=== PATIENT | female | born 1985 | race Caucasian/White ===

== ENCOUNTER 2016-10-02 12:07 | Emergency (ER) | payer BC ==
[2016-10-02 12:17] VITALS: BP 117/71
--- NOTE | 2016-10-02 14:06 | UC ---
Abdominal Pain Female HPI - HPI Summary HPI Summary: complaint of LLQ pain that started 3 days ago felt nauseated on the first day now is a constant aching pain waves of pain that are intermittent but has a constant pain denies vomiting, denies diarrhea, dysuria hx of ovarian cysts in the past but the pain feels different denies fever and chills LMP - mirena no menses for over 1 year, denies vaginal discharge last BM 3 days ago normal pattern no blood in stool taking ibuprofen every 6 hours without any relief - History of Current Complaint Chief Complaint: UCAbdominalPain Stated Complaint: LEFT SIDE PAIN Time Seen by Provider: 10/02/16 13:58 Hx Obtained From: Patient Hx Last Menstrual Period: MIRENA Onset/Duration: Sudden Onset, Lasting Days Location: Discrete At: LLQ Character: Sharp Aggravating Factor(s): Nothing Alleviating Factor(s): Nothing Associated Signs and Symptoms: Positive: Nausea Allergies/Adverse Reactions: Allergies Allergy/AdvReac Type Severity Reaction Status Date / Time Amoxicillin [From Augmentin] Allergy Severe SOB, RASH Verified 10/19/15 17:31 Clavulanic Acid Allergy Severe SOB, RASH Verified 10/19/15 17:31 [From Augmentin] Sulfa Drugs Allergy Severe SOB, RASH Verified 10/19/15 17:31 Nitrofurantoin Allergy Hives Verified 10/19/15 17:31 [From Macrobid] PMH/Surg Hx/FS Hx/Imm Hx Previously Healthy: Yes Endocrine History Of: Reports: Thyroid Disease - Thyroiditis Denies: Diabetes Cardiovascular History Of: Denies: Hypertension, Pacemaker/ICD GI/ History Of: Reports: Gastroesophageal Reflux - GALLBLADDER OUT IN AUG 2011 , Ulcer - HX OF BUT NOT AT PRESENT, Gall Bladder Disease - OUT IN AUG 2011 Denies: Renal Disease Neurological History Of: Reports: Migraine - MONTHLY- TREATS WITH IBUPROFEN AND SLEEP Psychological History Of: Reports: Anxiety - ON PAXIL FOR - Surgical History Surgical History: Yes Surgery Procedure, Year, and Place: [place] 08[place] [place] ST[place] PLACEMENT - URETERS[place] [place]. Appendectomy. TUBAL LIGATION - Family History Known Family History: Positive: Other - cancer Negative: Cardiac Disease, Hypertension, Diabetes - Social History Occupation: Employed Full-time Lives: With Family Alcohol Use: Occasionally Substance Use Type: None Smoking Status (MU): Light Every Day Tobacco Smoker Type: Cigarettes Amount Used/How Often: socially - Immunization History Most Recent Influenza Vaccination: never Most Recent Tetanus Shot: up to date Review of Systems Constitutional: Negative Skin: Negative Eyes: Negative ENT: Negative Respiratory: Negative Cardiovascular: Negative Gastrointestinal: Abdominal Pain Genitourinary: Negative Motor: Negative Neurovascular: Negative Musculoskeletal: Negative Neurological: Negative Psychological: Negative All Other Systems Reviewed And Are Negative: Yes Physical Exam Triage Information Reviewed: Yes Appearance: Well-Nourished, Pain Distress, Obese Vital Signs: Initial Vital Signs Temp 98.2 F 10/02/16 12:14 Pulse 70 10/02/16 12:14 Resp 16 10/02/16 12:14 BP 117/71 10/02/16 12:14 Pulse Ox 99 10/02/16 12:14 Vital Signs Reviewed: Yes Eyes: Positive: Conjunctiva Clear ENT: Positive: Pharynx normal, TMs normal. Negative: Nasal congestion Neck: Positive: Supple Respiratory: Positive: Lungs clear, Normal breath sounds, No respiratory distress Cardiovascular: Positive: RRR, No Murmur Abdomen Description: Positive: No Organomegaly, Guarding, Other: - LLQ tenderness. Negative: CVA Tenderness (R), CVA Tenderness (L) Bowel Sounds: Positive: Present Musculoskeletal: Positive: No Edema Neurological Exam: Normal Psychological Exam: Normal Skin Exam: Normal - External genitalia without erythema, exudate or discharge. Vaginal vault is without discharge. Cervix is of normal color without lesion. The os is closed.mirena string visulaizes, There is no bleeding noted. Uterus is noted to be of normal size and nontender. No cervical motion tenderness is seen. No masses are palpated. The adnexa are without masses or tenderness. Abd Pain Female Course/Dx - Course Course Of Treatment: exam completed. LLQ tendeness on exam. will transfer to ED d/t tenderness on exam - Differential Dx/Diagnosis Differential Diagnosis: Constipation, Ovarian Cyst, Pelvic Inflammatory Disease , Urinary Tract Infection Provider Diagnoses: LLQ abdominal pain - Physician Notification/Consults Discussed Patient Care With: Dr Jeronimo Perez Time Discussed With Above Provider: 14:23 Discharge - Discharge Plan Condition: Stable Disposition: TRANS [facility] Referrals: Mary Beth Menjivar MD [Primary Care Provider] -
== END 2016-10-02 14:31 | disposition short-term general hospital (02) ==
LOC: UCEAST 12:07
DX: R10.32 Left lower quadrant pain (principal); Z32.02 Encounter for pregnancy test, result negative; Z90.49 Acquired absence of other specified parts of digestive tract; K21.9 Gastro-esophageal reflux disease without esophagitis; Z88.1 Allergy status to other antibiotic agents; Z88.2 Allergy status to sulfonamides; F17.210 Nicotine dependence, cigarettes, uncomplicated
CPT/HCPCS: 81002; 81025; 87086; 99212; G0463

== ENCOUNTER 2016-10-02 14:44 | Emergency (ER) | payer BC ==
[2016-10-02] MEDS ORDERED: Ketorolac INJ* 30 MG/ML 1 ML VIAL IV ONE (15:18)
[2016-10-02] MEDS ORDERED: NS 0.9% 1000 ML* 1,000 ML IV ONE (15:18)
[2016-10-02 15:43] LABS: Hematocrit 40 % (35-47); Hemoglobin 13.6 g/dl (12.0-16.0); Mean Corpuscular HGB Conc 34 g/dl (31-36); Mean Corpuscular Hemoglobin 30 pg (27-31); Mean Corpuscular Volume 87 fL (80-97); Mean Platelet Volume 9 um3 (7.4-10.4); Red Blood Count 4.59 10^6/ul (4.0-5.4); Red Cell Distribution Width 13 % (10.5-15); White Blood Count 10.5 10^3/ul (3.5-10.8)
[2016-10-02 15:50] LABS: Urine Bilirubin Negative (Negative); Urine Glucose Negative (Negative); Urine Nitrite Negative (Negative)
[2016-10-02 16:18] LABS: ALT 10 U/L (7-52); AST 12 U/L (13-39); Alkaline Phosphatase 46 U/L (34-104); Anion Gap 5 mmol/L (2-11); BUN/Creatinine Ratio 14.1 (8-20); Blood Urea Nitrogen 10 mg/dL (6-24); C Reactive Protein < 1.00 mg/L (< 5.00); CO2 Carbon Dioxide 28 mmol/L (22-32); Calcium 9.1 mg/dL (8.6-10.3); Chloride 105 mmol/L (101-111); EGFR African American 122.7 (>60); EGFR Non-African American 95.4 (>60); Glucose 132 mg/dL (70-100); Lipase 24 U/L (11.0-82.0); Potassium 3.5 mmol/L (3.5-5.0); Sodium 138 mmol/L (133-145)
[2016-10-02] MEDS ORDERED: Iohexol 300* (CONTRAST) 10 ML SDV IV ONE (16:28)
--- NOTE | 2016-10-02 17:10 | ED ---
Abdominal Pain/Female - HPI Summary HPI Summary: Patient arrives to ED with 3 day history of worsening LLQ pain. Denies known fever, but endorses sweats. PMHx includes 3 abdominal surgeries: tubal ligation , appendectomy and cholecystectomy. Last BM was 3 days ago which is normal for her. No color changes or abnormalities in the stool. Endorses mild nausea, but denies vomiting. Pain is sharp and achy and does not radiate. Pain is worse at night and not related to time of eating. Denies back pain or urinary symptoms. Pain is described as stabbing and aching and is usually intermittent. - History of Current Complaint Hx Obtained From: Patient Hx Last Menstrual Period: MIRENA ?: No Onset/Duration: Sudden Onset Timing: Constant Severity Initially: Moderate Severity Currently: Moderate Pain Intensity: 6 Pain Scale Used: 0-10 Numeric Location: Discrete At: LLQ Radiates: No Character: Sharp, Colicy Aggravating Factor(s): Nothing Alleviating Factor(s): Nothing Associated Signs and Symptoms: Positive: Nausea - Risk Factors Ectopic Risk Factor: Maternal Age ^ 30 Ovarian Torsion Risk Factor: Reproductive Age <Jennifer Roberts - Last Filed: 10/02/16 18:21> <Kevon Dejesus - Last Filed: 10/03/16 10:29> - History of Current Complaint Chief Complaint: EDAbdPain Stated Complaint: LT ABD PAIN Time Seen by Provider: 10/02/16 14:51 Allergies/Adverse Reactions: Allergies Allergy/AdvReac Type Severity Reaction Status Date / Time Amoxicillin [From Augmentin] Allergy Severe SOB, RASH Verified 10/19/15 17:31 Clavulanic Acid Allergy Severe SOB, RASH Verified 10/19/15 17:31 [From Augmentin] Sulfa Drugs Allergy Severe SOB, RASH Verified 10/19/15 17:31 Bee Venom Allergy Anaphylatic Verified 10/02/16 15:48 Shock Nitrofurantoin Allergy Hives Verified 10/19/15 17:31 [From Macrobid] PMH/Surg Hx/FS Hx/Imm Hx Previously Healthy: Yes Endocrine/Hematology History: Reports: Hx Thyroid Disease - Thyroiditis Denies: Hx Diabetes Cardiovascular History: Denies: Hx Hypertension, Hx Pacemaker/ICD GI History: Reports: Hx Gall Bladder Disease - OUT IN AUG 2011, Hx Gastroesophageal Reflux Disease - HX OF- NO PROBLEMS AT PRESENT, Hx Irritable Bowel, Hx Ulcer - HX OF BUT NOT AT PRESENT History: Reports: Hx Kidney Infection, Other Problems/Disorders - ENDOMETRIOSIS, ADENOMYOSIS Denies: Hx Renal Disease Musculoskeletal History: Reports: Hx Tendonitis - RIGHT HAND Sensory History: Reports: Hx Contacts or Glasses - INSTRUCTS GIVEN Denies: Hx Hearing Aid Opthamlomology History: Reports: Hx Contacts or Glasses - INSTRUCTS GIVEN Neurological History: Reports: Hx Migraine - MONTHLY- TREATS WITH IBUPROFEN AND SLEEP Psychiatric History: Reports: Hx Anxiety - ON PAXIL FOR Denies: Hx Panic Disorder - Surgical History Surgery Procedure, Year, and Place: [place] [place] [place] Appendectomy. TUBAL LIGATION Hx Anesthesia Reactions: No Infectious Disease History: No Infectious Disease History: Denies: History Other Infectious Disease, Traveled Outside the in Last 30 Days - Family History Known Family History: Positive: Other - cancer Negative: Cardiac Disease, Hypertension, Diabetes - Social History Occupation: Employed Full-time Lives: With Family Alcohol Use: Occasionally Hx Substance Use: No Substance Use Type: Reports: None Hx Tobacco Use: Yes Smoking Status (MU): Light Every Day Tobacco Smoker Type: Cigarettes Amount Used/How Often: socially <Jennifer Roberts - Last Filed: 10/02/16 18:21> Review of Systems Constitutional: Negative Eyes: Negative Cardiovascular: Negative Respiratory: Negative Positive: Abdominal Pain, Nausea Genitourinary: Negative Positive: no symptoms reported, see HPI Musculoskeletal: Negative Skin: Negative Psychological: Normal All Other Systems Reviewed And Are Negative: Yes <Jennifer Roberts - Last Filed: 10/02/16 18:21> Physical Exam Triage Information Reviewed: Yes Vital Signs On Initial Exam: Initial Vitals Temp Pulse Resp BP Pulse Ox 98.5 F 78 18 119/72 100 10/02/16 14:45 10/02/16 14:45 10/02/16 14:45 10/02/16 14:45 10/02/16 14:45 Vital Signs Reviewed: Yes Appearance: Positive: Well-Appearing, No Pain Distress, Well-Nourished Skin: Positive: Warm, Skin Color Reflects Adequate Perfusion Head/Face: Positive: Normal Head/Face Inspection Eyes: Positive: EOMI, MINAL Neck: Positive: Nontender, No Lymphadenopathy Respiratory/Lung Sounds: Positive: Clear to Auscultation, Breath Sounds Present Cardiovascular: Positive: Normal Abdomen Description: Positive: Soft, Other: - tenderness in LLQ on palpation. Rebound tenderness in LLQ when palpating RLQ. No CVA tenderness. Musculoskeletal: Positive: Normal, Strength/ROM Intact Neurological: Positive: Sensory/Motor Intact, Alert, Oriented to Person Place, Time, Speech Normal Psychiatric: Positive: Normal AVPU Assessment: Alert - [place]onna Coma Scale Coma Scale Total: 15 <Jennifer Roberts - Last Filed: 10/02/16 18:21> Vital Signs On Initial Exam: Initial Vitals Temp Pulse Resp BP Pulse Ox 98.5 F 78 18 119/72 100 10/02/16 14:45 10/02/16 14:45 10/02/16 14:45 10/02/16 14:45 10/02/16 14:45 <Kevon Dejesus - Last Filed: 10/03/16 10:29> Diagnostics - Vital Signs Vital Signs Temp Pulse Resp BP Pulse Ox 10/02/16 16:00 74 113/70 99 10/02/16 15:30 115/68 10/02/16 15:16 83 98 10/02/16 15:06 98.1 F 10/02/16 15:05 78 97 10/02/16 15:04 124/69 10/02/16 14:45 98.5 F 78 18 119/72 100 - Laboratory Lab Results: Lab Results 10/02/16 10/02/16 10/02/16 Range/Units 15:25 15:25 15:25 WBC 10.5 (3.5-10.8) 10^3/ul RBC 4.59 (4.0-5.4) 10^6/ul Hgb 13.6 (12.0-16.0) g/dl Hct 40 (35-47) % MCV 87 (80-97) fL MCH 30 (27-31) pg MCHC 34 (31-36) g/dl RDW 13 (10.5-15) % Plt Count 187 (150-450) 10^3/ul MPV 9 (7.4-10.4) um3 Neut % (Auto) 71.1 (38-83) % Lymph % (Auto) 21.3 L (25-47) % Morrill % (Auto) 5.2 (1-9) % Eos % (Auto) 1.9 (0-6) % Baso % (Auto) 0.5 (0-2) % Absolute Neuts (auto) 7.5 (1.5-7.7) 10^3/ul Absolute Lymphs (auto) 2.2 (1.0-4.8) 10^3/ul Absolute Monos (auto) 0.6 (0-0.8) 10^3/ul Absolute Eos (auto) 0.2 (0-0.6) 10^3/ul Absolute Basos (auto) 0.1 (0-0.2) 10^3/ul Absolute Nucleated RBC 0 10^3/ul Nucleated RBC % 0 Sodium 138 (133-145) mmol/L Potassium 3.5 (3.5-5.0) mmol/L Chloride 105 (101-111) mmol/L Carbon Dioxide 28 (22-32) mmol/L Anion Gap 5 (2-11) mmol/L BUN 10 (6-24) mg/dL Creatinine 0.71 (0.51-0.95) mg/dL Est GFR ( Amer) 122.7 (>60) Est GFR (Non-Af Amer) 95.4 (>60) BUN/Creatinine Ratio 14.1 (8-20) Glucose 132 H (70-100) mg/dL Calcium 9.1 (8.6-10.3) mg/dL Total Bilirubin 0.60 (0.2-1.0) mg/dL AST 12 L (13-39) U/L ALT 10 (7-52) U/L Alkaline Phosphatase 46 (34-104) U/L C-Reactive Protein < 1.00 (< 5.00) mg/L Total Protein 7.0 (6.4-8.9) g/dL Albumin 4.0 (3.2-5.2) g/dL Globulin 3.0 (2-4) g/dL Albumin/Globulin Ratio 1.3 (1-3) Lipase 24 (11.0-82.0) U/L Beta HCG, Quant < 0.60 mIU/mL Urine Color Colorless Urine Appearance Clear Urine pH 6.0 (5-9) Ur Specific [place] 1.002 L (1.010-1.030) Urine Protein Negative (Negative) Urine Ketones Negative (Negative) Urine Blood Negative (Negative) Urine Nitrate Negative (Negative) Urine Bilirubin Negative (Negative) Urine Urobilinogen Negative (Negative) Ur Leukocyte Esterase Negative (Negative) Urine Glucose Negative (Negative) Result Diagrams: 10/02/16 15:25 10/02/16 15:25 Lab Statement: Any lab studies that have been ordered have been reviewed, and results considered in the medical decision making process. - CT No standard instances CT Interpretation: No Acute Changes CT Interpretation Completed By: Radiologist - Lung bases: The lung bases are clear. Liver: The liver is normal in size. There are no masses. There is no ductal dilatation. Gallbladder: Cholecystectomy. Spleen: The spleen is normal in size. There are no masses. Pancreas: There is no focal pancreatic mass or ductal dilatation. Adrenal glands: There is no evidence of adrenal mass. Kidneys: The kidneys are normal in size and position. There are prompt nephrograms and there is prompt excretion bilaterally. There are no renal parenchymal masses. There is no evidence of nephrolithiasis. Adenopathy: There is no evidence of adenopathy by size criteria. Fluid collections: There are no free or localized fluid collections. Vessels:There are no significant atherosclerotic changes involving the aorta. There is no focal aneurysm. The iliac vessels are normal in caliber. The IVC appears normal. GI tract: There are no acute CT bowel findings. There is no obstruction. The stomach and small bowel appear normal. The lower GI tract is normal. The cecum, ileocecal valve, and terminal ileum appear normal. There is appendectomy.. Pelvic organs: The uterus and adnexa appear normal. There is an IUD Bladder: There are no bladder masses. Abdominal and pelvic soft tissues: The extraperitoneal abdominal and pelvic soft tissues appear normal.. Osseous structures: There are no acute osseous findings. Other: None IMPRESSION: NO ACUTE CT FINDINGS. NO MASS OR INFLAMMATORY CHANGE <Jennifer Roberts - Last Filed: 10/02/16 18:21> - Vital Signs Vital Signs Temp Pulse Resp BP Pulse Ox 10/02/16 18:31 98.7 F 71 18 124/81 10/02/16 18:07 71 97 10/02/16 18:05 124/81 10/02/16 17:07 76 100 10/02/16 17:00 74 99 10/02/16 16:00 74 113/70 99 10/02/16 15:30 115/68 10/02/16 15:16 83 98 10/02/16 15:06 98.1 F 10/02/16 15:05 78 97 10/02/16 15:04 124/69 10/02/16 14:45 98.5 F 78 18 119/72 100 - Laboratory Lab Results: Lab Results 10/02/16 10/02/16 10/02/16 Range/Units 15:25 15:25 15:25 WBC 10.5 (3.5-10.8) 10^3/ul RBC 4.59 (4.0-5.4) 10^6/ul Hgb 13.6 (12.0-16.0) g/dl Hct 40 (35-47) % MCV 87 (80-97) fL MCH 30 (27-31) pg MCHC 34 (31-36) g/dl RDW 13 (10.5-15) % Plt Count 187 (150-450) 10^3/ul MPV 9 (7.4-10.4) um3 Neut % (Auto) 71.1 (38-83) % Lymph % (Auto) 21.3 L (25-47) % Morrill % (Auto) 5.2 (1-9) % Eos % (Auto) 1.9 (0-6) % Baso % (Auto) 0.5 (0-2) % Absolute Neuts (auto) 7.5 (1.5-7.7) 10^3/ul Absolute Lymphs (auto) 2.2 (1.0-4.8) 10^3/ul Absolute Monos (auto) 0.6 (0-0.8) 10^3/ul Absolute Eos (auto) 0.2 (0-0.6) 10^3/ul Absolute Basos (auto) 0.1 (0-0.2) 10^3/ul Absolute Nucleated RBC 0 10^3/ul Nucleated RBC % 0 Sodium 138 (133-145) mmol/L Potassium 3.5 (3.5-5.0) mmol/L Chloride 105 (101-111) mmol/L Carbon Dioxide 28 (22-32) mmol/L Anion Gap 5 (2-11) mmol/L BUN 10 (6-24) mg/dL Creatinine 0.71 (0.51-0.95) mg/dL Est GFR ( Amer) 122.7 (>60) Est GFR (Non-Af Amer) 95.4 (>60) BUN/Creatinine Ratio 14.1 (8-20) Glucose 132 H (70-100) mg/dL Calcium 9.1 (8.6-10.3) mg/dL Total Bilirubin 0.60 (0.2-1.0) mg/dL AST 12 L (13-39) U/L ALT 10 (7-52) U/L Alkaline Phosphatase 46 (34-104) U/L C-Reactive Protein < 1.00 (< 5.00) mg/L Total Protein 7.0 (6.4-8.9) g/dL Albumin 4.0 (3.2-5.2) g/dL Globulin 3.0 (2-4) g/dL Albumin/Globulin Ratio 1.3 (1-3) Lipase 24 (11.0-82.0) U/L Beta HCG, Quant < 0.60 mIU/mL Urine Color Colorless Urine Appearance Clear Urine pH 6.0 (5-9) Ur Specific [place] 1.002 L (1.010-1.030) Urine Protein Negative (Negative) Urine Ketones Negative (Negative) Urine Blood Negative (Negative) Urine Nitrate Negative (Negative) Urine Bilirubin Negative (Negative) Urine Urobilinogen Negative (Negative) Ur Leukocyte Esterase Negative (Negative) Urine Glucose Negative (Negative) Result Diagrams: 10/02/16 15:25 10/02/16 15:25 Lab Statement: Any lab studies that have been ordered have been reviewed, and results considered in the medical decision making process. <Kevon Dejesus - Last Filed: 10/03/16 10:29> Abdominal Pain Fem Course/Dx - Course Course Of Treatment: CT abd/pelvis without acute findings. Patient has history of appendectomy, tubal ligation, and cholecystectomy. Patient has IUD which is in place on CT. Denies vaginal bleeding but notes to a long history of endometriosis and adenomyosis. Explained to patient this pain could be d/t endormetriosis, although nothing found on CT. Recommended follow up with OBGYN. Labs and UA WNL. Patient agrees to follow up. Patient afebrile. Patient notes she has tramadol at home for migraines and will use if pain continues. Provider agrees to prescribe zofran. - Diagnoses Differential Diagnosis: Positive: Bowel Obstruction, Constipation, Ovarian Cyst <Jennifer Roberts - Last Filed: 10/02/16 18:21> - Provider Notifications Discussed Care Of Patient With: I was available for consultation. This patient was seen by mid level provider. The patient was not presented, seen, or examined by me. WR. <Kevon Dejesus - Last Filed: 10/03/16 10:29> - Diagnoses Provider Diagnoses: Abdominal pain Discharge <Jennifer Roberts - Last Filed: 10/02/16 18:21> <Kevon Dejesus - Last Filed: 10/03/16 10:29> - Discharge Plan Condition: Stable Disposition: HOME Prescriptions: Ondansetron ODT TAB* [Zofran Odt TAB*] 4 mg PO Q6H PRN #10 tab.odt MDD 4 PRN Reason: Nausea Patient Education Materials: Endometritis (ED) Referrals: Mary Beth Menjivar MD [Primary Care Provider] - Additional Instructions: Follow up with OBGYN. Follow up with PCP. Call tomorrow for appts. As discussed, this pain could be caused by endometriosis and should be closely followed by OB. I will give you information on endometriosis, yet this is not your diagnoses, please follow up with OB. Zofran as needed for nausea Come back to ED if worsening symptoms develop. SEE CT Results Below: Lung bases: The lung bases are clear. Liver: The liver is normal in size. There are no masses. There is no ductal dilatation. Gallbladder: Cholecystectomy. Spleen: The spleen is normal in size. There are no masses. Pancreas: There is no focal pancreatic mass or ductal dilatation. Adrenal glands: There is no evidence of adrenal mass. Kidneys: The kidneys are normal in size and position. There are prompt nephrograms and there is prompt excretion bilaterally. There are no renal parenchymal masses. There is no evidence of nephrolithiasis. Adenopathy: There is no evidence of adenopathy by size criteria. Fluid collections: There are no free or localized fluid collections. Vessels:There are no significant atherosclerotic changes involving the aorta. There is no focal aneurysm. The iliac vessels are normal in caliber. The IVC appears normal. GI tract: There are no acute CT bowel findings. There is no obstruction. The stomach and small bowel appear normal. The lower GI tract is normal. The cecum, ileocecal valve, and terminal ileum appear normal. There is appendectomy.. Pelvic organs: The uterus and adnexa appear normal. There is an IUD Bladder: There are no bladder masses. Abdominal and pelvic soft tissues: The extraperitoneal abdominal and pelvic soft tissues appear normal.. Osseous structures: There are no acute osseous findings. Other: None
--- NOTE | 2016-10-02 17:57 | RAD ---
INDICATION: Left lower quadrant pain COMPARISON: CT October 19, 2015 TECHNIQUE: Axial source images were obtained from the hemidiaphragms to the symphysis pubis following administration of oral and intravenous contrast. 115 mL Omnipaque 300 was utilized. Coronal and sagittal reconstructed images were acquired. Lung bases: The lung bases are clear. Liver: The liver is normal in size. There are no masses. There is no ductal dilatation. Gallbladder: Cholecystectomy. Spleen: The spleen is normal in size. There are no masses. Pancreas: There is no focal pancreatic mass or ductal dilatation. Adrenal glands: There is no evidence of adrenal mass. Kidneys: The kidneys are normal in size and position. There are prompt nephrograms and there is prompt excretion bilaterally. There are no renal parenchymal masses. There is no evidence of nephrolithiasis. Adenopathy: There is no evidence of adenopathy by size criteria. Fluid collections: There are no free or localized fluid collections. Vessels:There are no significant atherosclerotic changes involving the aorta. There is no focal aneurysm. The iliac vessels are normal in caliber. The IVC appears normal. GI tract: There are no acute CT bowel findings. There is no obstruction. The stomach and small bowel appear normal. The lower GI tract is normal. The cecum, ileocecal valve, and terminal ileum appear normal. There is appendectomy.. Pelvic organs: The uterus and adnexa appear normal. There is an IUD Bladder: There are no bladder masses. Abdominal and pelvic soft tissues: The extraperitoneal abdominal and pelvic soft tissues appear normal.. Osseous structures: There are no acute osseous findings. Other: None IMPRESSION: NO ACUTE CT FINDINGS. NO MASS OR INFLAMMATORY CHANGE
[2016-10-02 18:31] VITALS: BP 124/81
== END 2016-10-02 18:31 | disposition home or self-care (01) ==
LOC: ED 14:44
DX: R10.9 Unspecified abdominal pain (principal); F17.210 Nicotine dependence, cigarettes, uncomplicated; R11.0 Nausea
CPT/HCPCS: 36415; 74177; 80053; 81003; 83690; 84702; 85025; 86140; 96374; 99283; J1885; Q9967

== ENCOUNTER 2016-11-30 06:58 | Emergency (ER) | payer BC ==
[2016-11-30] MEDS ORDERED: oxyCODONE/Acetamin 5/325 MG* TAB PO ONE (07:39)
[2016-11-30] MEDS ORDERED: Ketorolac INJ* 60 MG/2 ML VIAL IM ONE (07:40)
[2016-11-30] MEDS ORDERED: Ciproflox/Dexameth OTIC.SUSP* 7.5 ML BTL BOTH EARS ONE (08:27)
[2016-11-30] MEDS ORDERED: Ciprofloxacin TAB* 250 MG PO ONE (08:55)
[2016-11-30 09:17] LABS: Hematocrit 40 % (35-47); Hemoglobin 13.3 g/dl (12.0-16.0); Mean Corpuscular HGB Conc 33 g/dl (31-36); Mean Corpuscular Hemoglobin 29 pg (27-31); Mean Corpuscular Volume 87 fL (80-97); Mean Platelet Volume 9 um3 (7.4-10.4); Red Blood Count 4.56 10^6/ul (4.0-5.4); Red Cell Distribution Width 14 % (10.5-15); White Blood Count 12.9 10^3/ul (3.5-10.8)
[2016-11-30 09:23] LABS: BUN/Creatinine Ratio 11.1 (8-20); Calcium 8.7 mg/dL (8.6-10.3); EGFR African American 105.4 (>60); EGFR Non-African American 81.9 (>60); Potassium 3.7 mmol/L (3.5-5.0)
[2016-11-30 09:59] VITALS: BP 111/67
== END 2016-11-30 09:55 | disposition home or self-care (01) ==
LOC: ED 06:58
DX: H60.90 Unspecified otitis externa, unspecified ear (principal)
CPT/HCPCS: 36415; 80048; 85027; 87040; 99282; A9270-GY; J1885

== ENCOUNTER 2017-08-30 08:46 | Emergency (ER) | payer BC ==
[2017-08-30] MEDS ORDERED: Cyclobenzaprine TAB* 10 MG PO ONE (09:21)
[2017-08-30] MEDS ORDERED: oxyCODONE/Acetamin 5/325 MG* TAB PO ONE (09:21)
[2017-08-30] MEDS ORDERED: Dexamethasone TAB* 4 MG PO ONE (09:21)
[2017-08-30] MEDS ORDERED: Lidocaine PATCH 5%* 1 PATCH TRANSDERM ONE (09:22)
--- NOTE | 2017-08-30 10:00 | RAD ---
Indication: Back pain. 2 views of the thoracic spine demonstrate vertebral bodies to be normal in height. Disc spaces all well-preserved. Spinal canal appears to be intact. No compression fracture is noted. IMPRESSION: No fracture of the thoracic spine is noted.
--- NOTE | 2017-08-30 10:04 | ED ---
Back Pain - HPI Summary HPI Summary: 32-year-old female presents with thoracic back pain today. States she was reaching up in the shower and felt a pull in her back. She since then she has been having extreme pain on the right side of her back. She states she has been occasionally occasional numbness into her bilateral hands. She denies any weakness. She denies any pain into legs. She denies any numbness or tingling in her legs. She doesn't have any saddle paresthesia or loss of bowel or bladder. She denies any fevers. She took some ibuprofen with some relief. She has never had this pain before. She denies a history of back pain. She has a family history of back pain. She states pain is worse with movement. - History of Current Complaint Chief Complaint: EDBackInjuryPain Stated Complaint: BACK PAIN Time Seen by Provider: 08/30/17 08:59 Hx Last Menstrual Period: MIRENA Pain Intensity: 5 - Allergies/Home Medications Allergies/Adverse Reactions: Allergies Allergy/AdvReac Type Severity Reaction Status Date / Time MS Amoxicillin Allergy Severe SOB, RASH Verified 08/30/17 08:49 [From Augmentin] MS Clavulanic Acid Allergy Severe SOB, RASH Verified 08/30/17 08:49 [From Augmentin] MS Sulfa Drugs [Sulfa Drugs] Allergy Severe SOB, RASH Verified 08/30/17 08:49 MS Bee Venom [Bee Venom] Allergy Anaphylatic Verified 08/30/17 08:49 Shock MS Nitrofurantoin Allergy Hives Verified 08/30/17 08:49 [From Macrobid] PMH/Surg Hx/FS Hx/Imm Hx Endocrine/Hematology History: Reports: Hx Thyroid Disease - Thyroiditis Denies: Hx Diabetes Cardiovascular History: Denies: Hx Hypertension, Hx Pacemaker/ICD GI History: Reports: Hx Gall Bladder Disease - OUT IN AUG 2011, Hx Gastroesophageal Reflux Disease - HX OF- NO PROBLEMS AT PRESENT, Hx Irritable Bowel, Hx Ulcer - HX OF BUT NOT AT PRESENT History: Reports: Hx Kidney Infection, Other Problems/Disorders - ENDOMETRIOSIS, ADENOMYOSIS Denies: Hx Renal Disease Musculoskeletal History: Reports: Hx Tendonitis - RIGHT HAND Sensory History: Reports: Hx Contacts or Glasses - INSTRUCTS GIVEN Denies: Hx Hearing Aid Opthamlomology History: Reports: Hx Contacts or Glasses - INSTRUCTS GIVEN Neurological History: Reports: Hx Migraine - MONTHLY- TREATS WITH IBUPROFEN AND SLEEP Denies: Other Neuro Impairments/Disorders Psychiatric History: Reports: Hx Anxiety - ON PAXIL FOR Denies: Hx Panic Disorder - Surgical History Surgery Procedure, Year, and Place: CHOLECYSTECTOMY 08/2012[place] [place]. STENT PLACEMENT - URETERS-2004 AND 2005-[facility] [place] REMOVED. Appendectomy. TUBAL LIGATION Hx Anesthesia Reactions: No Infectious Disease History: No Infectious Disease History: Denies: History Other Infectious Disease, Traveled Outside the [place] in Last 30 Days - Family History Known Family History: Positive: Other - cancer Negative: Cardiac Disease, Hypertension, Diabetes - Social History Alcohol Use: Occasionally Hx Substance Use: No Substance Use Type: Reports: None Hx Tobacco Use: Yes Smoking Status (MU): Light Every Day Tobacco Smoker Type: Cigarettes Amount Used/How Often: socially Review of Systems Negative: Fever Negative: Chest Pain Negative: Shortness Of Breath Positive: Myalgia - back pain All Other Systems Reviewed And Are Negative: Yes Physical Exam Triage Information Reviewed: Yes Vital Signs On Initial Exam: Initial Vitals Temp Pulse Resp BP Pulse Ox 98.1 F 76 16 118/73 98 08/30/17 08:47 08/30/17 08:47 08/30/17 08:47 08/30/17 08:47 08/30/17 08:47 Vital Signs Reviewed: Yes Appearance: Positive: Pain Distress Skin: Positive: Warm, Dry Head/Face: Positive: Normal Head/Face Inspection Eyes: Positive: Normal, Conjunctiva Clear Respiratory/Lung Sounds: Positive: Clear to Auscultation, Breath Sounds Present Cardiovascular: Positive: Normal, RRR Musculoskeletal: Positive: Limited @ - back, Other - Tenderness at T10 through T12 and an right-sided thoracic back, good pulses, sensation grossly intact, 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 - Radiology thoracic Xray Interpretation: No Acute Changes Radiology Interpretation Completed By: Radiologist Back Pain Course/Dx - Course Course Of Treatment: 32-year-old female presents with thoracic back pain today. States she was reaching up in the shower and felt a pull in her back. She since then she has been having extreme pain on the right side of her back. She states she has been occasionally occasional numbness into her bilateral hands. She denies any weakness. She denies any pain into legs. She denies any numbness or tingling in her legs. She doesn't have any saddle paresthesia or loss of bowel or bladder. She denies any fevers. She took some ibuprofen with some relief. She has never had this pain before. She denies a history of back pain. She has a family history of back pain. She states pain is worse with movement. On exam has tenderness at T10 through T12 and on the right side of back. Negative straight leg rest. Neurovascularly intact. X-ray thorax normal. will treat with muscle relaxer and steriod. will have follow up with primary. patient understand and agrees with plan. - Diagnoses Differential Diagnosis/HQI/PQRI: Positive: Herniated Disc, Strain, Sprain Provider Diagnoses: Back pain Discharge - Discharge Plan Condition: Good Disposition: HOME Patient Education Materials: Back Pain (ED) Referrals: Mary Beth Menjivar MD [Primary Care Provider] - Additional Instructions: Follow directions on package for Medrol pack Take muscle relaxers three times a day Apply lidocaine patches to area for up to 12 hours in one 24 hour period Use ibuprofen or Tylenol for pain every 6 hours ice/heat area, move as much as possible Follow up with primary within 5 days Return to ED if develop any new or worsening symptoms
[2017-08-30 11:37] VITALS: BP 106/76
== END 2017-08-30 11:34 | disposition home or self-care (01) ==
LOC: ED 08:46
DX: M54.6 Pain in thoracic spine (principal); F17.210 Nicotine dependence, cigarettes, uncomplicated; E06.9 Thyroiditis, unspecified; K21.9 Gastro-esophageal reflux disease without esophagitis; Z88.2 Allergy status to sulfonamides
CPT/HCPCS: 72070; 99282; A9270-GY; J8540

== ENCOUNTER 2017-11-11 19:01 | Emergency (ER) | payer BC ==
--- OUTSIDE RECORDS SUMMARY | 2017-11-11 19:09 | XMS REPORT ---
:1985 External Reference #:[id number] Author Organization [facility] Address [address] [address] Phone [phone] Care Team Providers Name Role Phone Mary Beth Menjivar MD Primary Care Physician Unavailable Payers Type Date Identification Numbers Payment Provider Subscriber Commercial Effective: Policy Number: KARYNA Bowers Mat Mary 2013 [id number] PayID: [id number] [address] [address] Medigap Part B Expires: 2013 Policy Number: BS Elissa Caitlin Mary [id number] PayID: [id number] [address] [address] Problems Date Description Provider Status Onset: 11/18/2013 Migraine Mary Beth Menjivar M.D. Active Onset: 11/18/2013 Epigastric pain Mary Beth Menjivar M.D. 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 until symptoms clear Transderm-Scop 10/22 Hx Patches 1mg/3Days 12uni apply one Karissa (1.5 MG) 72HR ts patch behind Varn, N.P. - ear every 72 / Ibuprofen 05/15 Active Tablets 600mg 30tab 1 tab by S23.3xxA Breana s mouth three Dotson, times a day M.D. as needed Paroxetine HCL 11/02 Active Tablets 40mg 30tab 1 by mouth Karissa /2017 s every day Eliana, N.P. Epipen 2-Rainer 02/12 Active Solution 0.3mg/0.3 2unit use one time Auto-Inje ML s as directed Varn, N.P. ct Metaxalone 05/15 Hx Tablets 800mg 7tabs 1 tab at hs S23.3xxA Breana /2016 Nila, - M.D. 11/07 Metaxalone 11/02 Hx Tablets 800mg 30tab take 1 tablet G44.201 Karissa /2017 s at bedtime Varn, N.P. - 05/15 Rizatriptan 08/10 Hx Tablets 10mg 10tab 1 by mouth Christopher Manate s twice a day Rita, - as needed M.D. 05/15 headache 2 days a week discontinued Gabapentin 07/09 Hx Capsules 100mg 60cap 1 tab by R51 Vianey s mouth twice a MD Chio - day 11/01 Tramadol HCL 07/09 Hx Tablets 50mg 45tab Take One To R51 Rey s Two Tablets CHARLEEN Allred - By Mouth 12/07 Every 4 To Hours as Needed For Pain, Maximum Daily Dose=6 Paroxetine HCL 04/11 Hx Tablets 20mg 30tab take one Karissa /2015 s tablet by Varhill, N.P. - mouth every Dicyclomine HCL 03/20 Hx Capsules 10mg 30cap take one 789.00 Mary Beth /2014 s capsule by Cotton, - mouth every M.D. 11/24 six hours needed for abdominal pain Nexium 11/25 Hx Capsules 40mg 30cap [address] torres every day as Otto, - needed M.D. 11/01 Paxil Hx Tablets 20mg 30tab 1 by mouth Mary Beth s every day Otto, - M.D. 04/11 Sucralfate Hx Tablets 1gm 60tab 1 by mouth 4 Unknown /0000 s x d - 12/08 Prilosec Hx Capsules 20mg 90cap 1 by mouth Unknown /0000 DR torres every day - 11/25 Doxycycline Hx Solution 100mg 20uni si twice a Unknown Hyclate /0000 Rec ts day x 14 days - 12/08 Clarinex Hx Tablets 5mg 1 by mouth Unknown /0000 every day - 08/09 Xyzal Hx Tablets 5mg 1 by mouth Unknown /0000 every day - 08/09 Nortriptyline Hx Capsules 25mg 30cap 1 by mouth Christopher Jimenez HCL s every day Rita, - discontinued M.D. 05/15 Naproxen Hx Tablets 500mg take 1 tablet Unknown /0000 twice a day - as needed for 05/15 Vital Signs Date Vital Result Comment 11/07/2017 Height 67 inches 5'7" Weight 175.50 lb Heart Rate 73 /min BP Systolic 120 mmHg BP Diastolic 80 mmHg Body Temperature 97.3 F O2 % BldC Oximetry 97 % BMI (Body Mass Index) 27.5 kg/m2 05/15/2017 Weight 181.00 lb Heart Rate 79 /min BP Systolic Sitting 116 mmHg BP Diastolic Sitting 76 mmHg Body Temperature 97.8 F Pain Level 4 constant back pain O2 % BldC Oximetry 98 % 11/02/2016 Height 66.5 inches 5'6.50" Weight 197.50 lb Heart Rate 81 /min BP Systolic 106 mmHg BP Diastolic 64 mmHg Body Temperature 98.0 F O2 % BldC Oximetry 98 % BMI (Body Mass Index) 31.4 kg/m2 06/06/2016 Weight 200.00 lb Heart Rate 74 /min BP Systolic Sitting 118 mmHg BP Diastolic Sitting 76 mmHg Respiratory Rate 15 /min Body Temperature 98.3 F O2 % BldC Oximetry 98 % 08/10/2015 Height 67 inches 5'7" Weight 191.00 lb Heart Rate 80 /min BP Systolic Sitting 122 mmHg BP Diastolic Sitting 74 mmHg Respiratory Rate 16 /min BMI (Body Mass Index) 29.9 kg/m2 07/09/2015 Weight 192.00 lb Heart Rate 80 /min BP Systolic Sitting 122 mmHg BP Diastolic Sitting 76 mmHg Respiratory Rate 16 /min Body Temperature 98.0 F O2 % BldC Oximetry 98 % 05/31/2015 Weight 192.50 lb Heart Rate 63 /min BP Systolic Sitting 114 mmHg BP Diastolic Sitting 81 mmHg Body Temperature 98.0 F O2 % BldC Oximetry 99 % 12/04/2014 Weight 179.00 lb Heart Rate 82 /min BP Systolic Sitting 122 mmHg BP Diastolic Sitting 66 mmHg Body Temperature 98.5 F 11/24/2014 Height 67 inches 5'7" Weight 195.00 lb Heart Rate 80 /min BP Systolic 112 mmHg BP Diastolic 80 mmHg Body Temperature 98.8 F BMI (Body Mass Index) 30.5 kg/m2 03/20/2014 Height 67 inches 5'7" Weight 187.00 lb Heart Rate 78 /min BP Systolic Sitting 118 mmHg BP Diastolic Sitting 82 mmHg BMI (Body Mass Index) 29.3 kg/m2 12/08/2013 Height 67 inches 5'7" Weight 180.00 lb Heart Rate 80 /min BP Systolic 118 mmHg BP Diastolic 80 mmHg Body Temperature 98.5 F BMI (Body Mass Index) 28.2 kg/m2 11/18/2013 Height 67 inches 5'7" Weight 182.50 lb Heart Rate 74 /min BP Systolic Sitting 120 mmHg BP Diastolic Sitting 80 mmHg Respiratory Rate 18 /min Body Temperature 97.8 F BMI (Body Mass Index) 28.6 kg/m2 Results Test Date Test Result H/L Range Note CBC No Diff 11/30/2016 White Blood Count 12.9 10^3/uL High 3.5-10.8 Red Blood Count 4.56 10^6/uL 4.0-5.4 Hemoglobin 13.3 g/dL 12.0-16.0 Hematocrit 40 % 35-47 Mean Corpuscular Volume 87 fL 80-97 Mean Corpuscular Hemoglobin 29 pg 27-31 Mean Corpuscular HGB Conc 33 g/dL 31-36 Red Cell Distribution Width 14 % 10.5-15 Platelet Count 156 10^3/uL 150-450 Mean Platelet Volume 9 um3 7.4-10.4 Basic Metabolic Panel 11/30/2016 Sodium 134 mmol/L 133-145 Potassium 3.7 mmol/L 3.5-5.0 Chloride 102 mmol/L 101-111 Co2 Carbon Dioxide 24 mmol/L 22-32 Anion Gap 8 mmol/L 2-11 Glucose 112 mg/dL High 70-100 Blood Urea Nitrogen 9 mg/dL 6-24 Creatinine 0.81 mg/dL 0.51-0.95 BUN/Creatinine Ratio 11.1 8-20 Calcium 8.7 mg/dL 8.6-10.3 Egfr Non- 81.9 >60 Egfr 105.4 >60 1 Laboratory test finding 11/30/2016 Blood Culture SEE RESULT BELOW 2 CBC Auto Diff 10/02/2016 White Blood Count 10.5 10^3/uL 3.5-10.8 Red Blood Count 4.59 10^6/uL 4.0-5.4 Hemoglobin 13.6 g/dL 12.0-16.0 Hematocrit 40 % 35-47 Mean Corpuscular Volume 87 fL 80-97 Mean Corpuscular Hemoglobin 30 pg 27-31 Mean Corpuscular HGB Conc 34 g/dL 31-36 Red Cell Distribution Width 13 % 10.5-15 Platelet Count 187 10^3/uL 150-450 Mean Platelet Volume 9 um3 7.4-10.4 Abs Neutrophils 7.5 10^3/uL 1.5-7.7 Abs Lymphocytes 2.2 10^3/uL 1.0-4.8 Abs Monocytes 0.6 10^3/uL 0-0.8 Abs Eosinophils 0.2 10^3/uL 0-0.6 Abs Basophils 0.1 10^3/uL 0-0.2 Abs Nucleated RBC 0 10^3/uL Granulocyte % 71.1 % 38-83 Lymphocyte % 21.3 % Low 25-47 Monocyte % 5.2 % 1-9 Eosinophil % 1.9 % 0-6 Basophil % 0.5 % 0-2 Nucleated Red Blood Cells % 0 Urinalysis Profile 10/02/2016 Urine Color Colorless Urine Appearance Clear Urine Specific [place] 1.002 Low 1.010-1.030 Urine pH 6.0 5-9 Urine Urobilinogen Negative Negative Urine Ketones Negative Negative Urine Protein Negative Negative Urine Leukocytes Negative Negative Urine Blood Negative Negative Urine Nitrite Negative Negative Urine Bilirubin Negative Negative Urine Glucose Negative Negative Laboratory test finding 10/02/2016 HCG < 0.60 mIU/mL 3 Comp Metabolic Panel 10/02/2016 Sodium 138 mmol/L 133-145 Potassium 3.5 mmol/L 3.5-5.0 Chloride 105 mmol/L 101-111 Co2 Carbon Dioxide 28 mmol/L 22-32 Anion Gap 5 mmol/L 2-11 Glucose 132 mg/dL High 70-100 Blood Urea Nitrogen 10 mg/dL 6-24 Creatinine 0.71 mg/dL 0.51-0.95 BUN/Creatinine Ratio 14.1 8-20 Calcium 9.1 mg/dL 8.6-10.3 Total Protein 7.0 g/dL 6.4-8.9 Albumin 4.0 g/dL 3.2-5.2 Globulin 3.0 g/dL 2-4 Albumin/Globulin Ratio 1.3 1-3 Total Bilirubin 0.60 mg/dL 0.2-1.0 Alkaline Phosphatase 46 U/L 34-104 Alt 10 U/L 7-52 Ast 12 U/L Low 13-39 Egfr Non- 95.4 >60 Egfr 122.7 >60 4 Laboratory test finding 10/02/2016 Lipase 24 U/L 11.0-82.0 C Reactive Protein < 1.00 mg/L < 5.00 5 Urine Culture And 10/02/2016 Urine Culture SEE RESULT BELOW 6 Sensitivities CBC Auto Diff 09/25/2016 White Blood Count 8.4 10^3/uL 3.5-10.8 Red Blood Count 4.66 10^6/uL 4.0-5.4 Hemoglobin 13.7 g/dL 12.0-16.0 Hematocrit 40 % 35-47 Mean Corpuscular Volume 87 fL 80-97 Mean Corpuscular Hemoglobin 29 pg 27-31 Mean Corpuscular HGB Conc 34 g/dL 31-36 Red Cell Distribution Width 13 % 10.5-15 Platelet Count 197 10^3/uL 150-450 Mean Platelet Volume 9 um3 7.4-10.4 Abs Neutrophils 4.9 10^3/uL 1.5-7.7 Abs Lymphocytes 2.5 10^3/uL 1.0-4.8 Abs Monocytes 0.7 10^3/uL 0-0.8 Abs Eosinophils 0.2 10^3/uL 0-0.6 Abs Basophils 0 10^3/uL 0-0.2 Abs Nucleated RBC 0 10^3/uL Granulocyte % 58.7 % 38-83 Lymphocyte % 29.6 % 25-47 Monocyte % 8.8 % 1-9 Eosinophil % 2.5 % 0-6 Basophil % 0.4 % 0-2 Nucleated Red Blood Cells % 0 Laboratory test finding 09/25/2016 TSH (Thyroid Stim Horm) 0.87 mcIU/mL 0.34-5.60 Ferritin 51.5 ng/mL 11-307 Thyroperoxidase AB 0.53 IU/mL <9 Thyroglobulin AB <1.8 IU/mL <4.0 7 Urine Culture And 06/01/2016 Urine Culture SEE RESULT BELOW 8, 9 Sensitivities Urine Culture And 10/19/2015 Urine Culture SEE RESULT BELOW 10 Sensitivities GC/Chlamydia Amplified 08/20/2015 Chlamydia Negative Negative Rna trachomatis Rna Neisseria gonorrhoeae (GC) Rna Negative Negative Laboratory test finding 08/20/2015 HPV Rna Ww/Reflex Genotype Negative Negative 11 Cytology SEE RESULT BELOW 12 Laboratory test finding 08/03/2015 TSH (Thyroid Stim Horm) 1.13 ?IU/mL 0.34-5.60 T3 Free 2.90 pg/mL 2.5-3.9 Free T4 (Free Thyroxine) 0.72 ng/mL 0.61-1.12 T3 Total 0.97 ng/mL 0.87-1.78 Comp Metabolic Panel 08/01/2015 Sodium 135 mmol/L 133-145 Potassium 3.8 mmol/L 3.5-5.0 Chloride 101 mmol/L 101-111 Co2 Carbon Dioxide 28 mmol/L 22-32 Anion Gap 6 mmol/L 2-11 Glucose 92 mg/dL 70-100 Blood Urea Nitrogen 11 mg/dL 6-24 Creatinine 0.89 mg/dL 0.51-0.95 BUN/Creatinine Ratio 12.4 8-20 Calcium 9.3 mg/dL 8.6-10.3 Total Protein 7.0 g/dL 6.4-8.9 Albumin 4.2 g/dL 3.2-5.2 Globulin 2.8 g/dL 2-4 Albumin/Globulin Ratio 1.5 1-3 Total Bilirubin 0.40 mg/dL 0.2-1.0 Alkaline Phosphatase 45 U/L 34-104 Alt 9 U/L 7-52 Ast 13 U/L 13-39 Egfr Non- 74.0 >60 Egfr 95.1 >60 13 Laboratory test finding 08/01/2015 C Reactive Protein < 1.00 mg/L &lt ; 5.00 14 CBC Auto Diff 08/01/2015 White Blood Count 8.5 10^3/uL 3.5-10.8 Red Blood Count 4.82 10^6/uL 4.0-5.4 Hemoglobin 14.3 g/dL 12.0-16.0 Hematocrit 43 % 35-47 Mean Corpuscular Volume 89 fL 80-97 Mean Corpuscular Hemoglobin 30 pg 27-31 Mean Corpuscular HGB Conc 34 g/dL 31-36 Red Cell Distribution Width 13 % 10.5-15 Platelet Count 208 10^3/uL 150-450 Mean Platelet Volume 9 um3 7.4-10.4 Abs Neutrophils 5.7 10^3/uL 1.5-7.7 Abs Lymphocytes 1.9 10^3/uL 1.0-4.8 Abs Monocytes 0.7 10^3/uL 0-0.8 Abs Eosinophils 0.2 10^3/uL 0-0.6 Abs Basophils 0.1 10^3/uL 0-0.2 Abs Nucleated RBC 0 10^3/uL Granulocyte % 67.0 % 38-83 Lymphocyte % 22.0 % Low 25-47 Monocyte % 7.7 % 1-9 Eosinophil % 2.7 % 0-6 Basophil % 0.6 % 0-2 Nucleated Red Blood Cells % 0 Laboratory test finding 08/01/2015 Erythrocyte Sed Rate 9 mm/Hr 0-14 Laboratory test finding 07/06/2015 TSH (Thyroid Stim Horm) 1.32 ?IU/mL 0.34-5.60 T3 Free 3.50 pg/mL 2.5-3.9 Free T4 (Free Thyroxine) 0.77 ng/mL 0.61-1.12 T3 Total 0.94 ng/mL 0.87-1.78 CBC Auto Diff 06/17/2015 White Blood Count 7.5 10^3/uL 4.8-10.8 Red Blood Count 4.70 10^6/uL 4.0-5.4 Hemoglobin 14.3 g/dL 12.0-16.0 Hematocrit 43 % 35-47 Mean Corpuscular Volume 91 fL 80-97 Mean Corpuscular Hemoglobin 30 pg 27-31 Mean Corpuscular HGB Conc 34 g/dL 31-36 Red Cell Distribution Width 13 % 10.5-15 Platelet Count 189 10^3/uL 150-450 Mean Platelet Volume 9 um3 7.4-10.4 Abs Neutrophils 4.8 10^3/uL 1.5-7.7 Abs Lymphocytes 1.8 10^3/uL 1.0-4.8 Abs Monocytes 0.7 10^3/uL 0-0.8 Abs Eosinophils 0.2 10^3/uL 0-0.6 Abs Basophils 0 10^3/uL 0-0.2 Abs Nucleated RBC 0 10^3/uL Granulocyte % 64.0 % 38-83 Lymphocyte % 24.0 % Low 25-47 Monocyte % 9.4 % High 1-9 Eosinophil % 2.0 % 0-6 Basophil % 0.6 % 0-2 Nucleated Red Blood Cells % 0 Laboratory test finding 06/10/2015 TSH (Thyroid Stim Horm) 1.01 ?IU/mL 0.34-5.60 Free T4 (Free Thyroxine) 0.84 ng/mL 0.61-1.12 T3 Free 3.00 pg/mL 2.5-3.9 T3 Total 0.91 ng/mL 0.87-1.78 Ua Routine 05/31/2015 Ua Specific [place] 1.005 Ua PH 5 Ua Color yellow Ua Appera cloudy Ua WBC neg Ua Protein neg Ua Glucose neg Ua Ketones neg Ua Bilirubin neg Ua Urobilinogen neg Ua Nitrite neg Ua Occult Blood neg Laboratory test 05/31/2015 Urine Culture And SEE RESULT BELOW 15 finding Sensitivities Laboratory test 03/08/2015 Thyroperoxidase AB 0.69 IU/mL <9 finding Erythrocyte Sed Rate 6 mm/Hr 0-14 Thyroglobulin Tumor 03/08/2015 Thyroglobulin Antibody <1.8 IU/mL < 4.0 Marker Thyroglobulin Tumor Marker 22 ng/mL 16 Thyroglobulin Interpretation See Comment 17 Laboratory test 03/08/2015 Thyroid Stimulating <1.0 TSIindex <=1.3 18 finding Immunoglob Laboratory test 12/08/2014 Ferritin 18.2 ng/mL 11-307 19, 20 finding Follicle Stimulating Hormone 8.2 ?IU/mL 19, 21 CBC Auto Diff 12/08/2014 White Blood Count 5.7 10^3/uL 4.8-10.8 19 Red Blood Count 4.54 10^6/uL 4.0-5.4 19 Hemoglobin 14.0 g/dL 12.0-16.0 19 Hematocrit 40 % 35-47 19 Mean Corpuscular Volume 88 fL 80-97 19 Mean Corpuscular Hemoglobin 31 pg 27-31 19 Mean Corpuscular HGB Conc 35 g/dL 31-36 19 Red Cell Distribution Width 13 % 10.5-15 19 Platelet Count 185 10^3/uL 150-450 19 Mean Platelet Volume 10 um3 7.4-10.4 19 Abs Neutrophils 3.7 10^3/uL 1.5-7.7 19 Abs Lymphocytes 1.4 10^3/uL 1.0-4.8 19 Abs Monocytes 0.4 10^3/uL 0-0.8 19 Abs Eosinophils 0.2 10^3/uL 0-0.6 19 Abs Basophils 0 10^3/uL 0-0.2 19 Abs Nucleated RBC 0.05 10^3/uL 19 Granulocyte % 64.6 % 38-83 19 Lymphocyte % 24.0 % Low 25-47 19 Monocyte % 7.5 % 1-9 19 Eosinophil % 3.2 % 0-6 19 Basophil % 0.7 % 0-2 19 Nucleated Red Blood Cells % 0.9 19 Laboratory test 12/08/2014 TSH (Thyroid Stim 0.07 ?IU/mL Low 0.34-5.60 19 , 22 finding Horm) Prolactin 5.4 ng/mL 1.0-25.0 19, 23 Comp Metabolic Panel 12/08/2014 Sodium 137 mmol/L 133-145 19 Potassium 4.4 mmol/L 3.5-5.0 19 Chloride 105 mmol/L 101-111 19 Co2 Carbon Dioxide 27 mmol/L 22-32 19 Anion Gap 5 mmol/L 2-11 19 Glucose 95 mg/dL 70-100 19 Blood Urea Nitrogen 13 mg/dL 6-24 19 Creatinine 0.83 mg/dL 0.51-0.95 19 BUN/Creatinine Ratio 15.7 8-20 19 Calcium 8.9 mg/dL 8.6-10.3 19 Total Protein 6.5 g/dL 6.4-8.9 19 Albumin 3.9 g/dL 3.2-5.2 19 Globulin 2.6 g/dL 2-4 19 Albumin/Globulin Ratio 1.5 1-3 19 Total Bilirubin 0.70 mg/dL 0.2-1.0 19 Alkaline Phosphatase 47 U/L 34-104 19 Alt 8 U/L 7-52 19 Ast 11 U/L Low 13-39 19 Egfr Non- 80.7 >60 19 Egfr 103.8 >60 19, 24 Urine Culture And Sensitivities 12/04/2014 Urine Culture (SEE NOTE) 25 Ua Routine 12/04/2014 Ua Specific [place] 1.010 Ua PH 7.0 Ua Color yellow Ua Appera clear Ua WBC neg Ua Protein neg Ua Glucose neg Ua Ketones neg Ua Bilirubin neg Ua Urobilinogen 0.2 Ua Nitrite neg Ua Occult Blood neg Urinalysis Profile 12/04/2014 Urine Color Straw Urine Appearance Clear Urine Specific [place] 1.006 Low 1.010-1.030 Urine pH 7.0 5-9 Urine Urobilinogen Negative Negative Urine Ketones Negative Negative Urine Protein Negative Negative Urine Leukocytes Negative Negative Urine Blood Negative Negative Urine Nitrite Negative Negative Urine Bilirubin Negative Negative Urine Glucose Negative Negative Laboratory test finding 11/30/2014 TSH (Thyroid Stimulating 0.10 IU/mL Low 0.34-5.60 Horm) Free T4 0.99 ng/mL 0.61-1.12 Total T3 1.09 ng/mL 0.87-1.78 Thyroid Autoantibodies 11/30/2014 Thyroglobulin Ab Scrn <1.8 IU/mL &lt ;4.0 26 Thyroperoxidase Ab 0.6 IU/mL <9.0 Laboratory test finding 11/26/2014 TSH (Thyroid 0.13 IU/mL Low 0.34-5.60 Stimulating Horm) CBC Auto Diff 11/26/2014 White Blood Count 7.9 10^3/uL 4.8-10.8 Red Blood Count 4.63 10^6/uL 4.0-5.4 Hemoglobin 14.2 g/dL 12.0-16.0 Hematocrit 41 % 35-47 Mean Corpuscular Volume 89 fL 80-97 Mean Corpuscular Hemoglobin 31 pg 27-31 Mean Corpuscular HGB Conc 34 g/dL 31-36 Red Cell Distribution Width 13 % 10.5-15 Platelet Count 184 10^3/uL 150-450 Mean Platelet Volume 10 um3 7.4-10.4 Abs Neutrophils 5.2 10^3/uL 1.5-7.7 Abs Lymphocytes 1.7 10^3/uL 1.0-4.8 Abs Monocytes 0.8 10^3/uL 0-0.8 Abs Eosinophils 0.2 10^3/uL 0-0.6 Abs Basophils 0 10^3/uL 0-0.2 Abs Nucleated RBC 0.01 10^3/uL Granulocyte % 65.2 % 38-83 Lymphocyte % 22.0 % Low 25-47 Monocyte % 10.3 % High 1-9 Eosinophil % 1.9 % 0-6 Basophil % 0.6 % 0-2 Nucleated Red Blood Cells % 0.1 Ua Routine 11/24/2014 Ua Specific [place] 1.005 Ua PH 8 Ua Color yellow Ua Appera clear Ua WBC negative Ua Protein negative Ua Glucose negative Ua Ketones negative Ua Bilirubin negative Ua Urobilinogen normal Ua Nitrite negative Ua Occult Blood negative CBC Auto Diff 12/13/2013 White Blood Count 6.3 10^3/uL 4.8-10.8 27 Red Blood Count 4.37 10^6/uL 4.0-5.4 27 Hemoglobin 13.1 g/dL 12.0-16.0 27 Hematocrit 38 % 35-47 27 Mean Corpuscular Volume 86 fL 80-97 27 Mean Corpuscular Hemoglobin 30 pg 27-31 27 Mean Corpuscular HGB Conc 35 g/dL 31-36 27 Red Cell Distribution Width 13 % 10.5-15 27 Platelet Count 201 10^3/uL 150-450 27 Mean Platelet Volume 9 um3 7.4-10.4 27 Abs Neutrophils 3.7 10^3/uL 1.5-7.7 27 Abs Lymphocytes 1.8 10^3/uL 1.0-4.8 27 Abs Monocytes 0.6 10^3/uL 0-0.8 27 Abs Eosinophils 0.2 10^3/uL 0-0.6 27 Abs Basophils 0 10^3/uL 0-0.2 27 Abs Nucleated RBC 0 10^3/uL 27 Granulocyte % 57.8 % 38-83 27 Lymphocyte % 28.9 % 25-47 27 Monocyte % 9.5 % High 1-9 27 Eosinophil % 3.2 % 0-6 27 Basophil % 0.6 % 0-2 27 Nucleated Red Blood Cells % 0.1 27 Laboratory test finding 12/13/2013 Serum Negative Negative 27 , 28 Comp Metabolic Panel 12/13/2013 Sodium 137 mmol/L 133-145 27 Potassium 4.1 mmol/L 3.7-5.6 27 Chloride 102 mmol/L 101-111 27 Co2 Carbon Dioxide 28 mmol/L 22-32 27 Anion Gap 7 mmol/L 2-11 27 Glucose 97 mg/dL 70-100 27 Blood Urea Nitrogen 12 mg/dL 6-24 27 Creatinine 0.83 mg/dL 0.51-0.95 27 BUN/Creatinine Ratio 14.5 8-20 27 Calcium 9.0 mg/dL 8.6-10.3 27 Total Protein 6.9 g/dL 6.4-8.9 27 Albumin 4.2 g/dL 3.2-5.2 27 Globulin 2.7 g/dL 2-4 27 Albumin/Globulin Ratio 1.6 1-3 27 Total Bilirubin 0.50 mg/dL 0.2-1.0 27 Alkaline Phosphatase 44 U/L 34-104 27 Alt 9 U/L 7-52 27 Ast 12 U/L Low 13-39 27 Egfr Non- 81.3 >60 27 Egfr 104.5 >60 27, 29 Laboratory test finding 12/13/2013 Lipase 20 U/L 11.0-82.0 27, 30 Troponin I 0.01 ng/mL <0.03 27, 31 Laboratory test finding 12/06/2013 Lipase 16 U/L 11.0-82.0 C Reactive Protein 2.35 mg/L < 5.00 32 Comp Metabolic Panel 12/06/2013 Sodium 137 mmol/L 133-145 Potassium 3.8 mmol/L 3.7-5.6 Chloride 104 mmol/L 101-111 Co2 Carbon Dioxide 28 mmol/L 22-32 Anion Gap 5 mmol/L 2-11 Glucose 82 mg/dL 70-100 Blood Urea Nitrogen 12 mg/dL 6-24 Creatinine 0.80 mg/dL 0.51-0.95 BUN/Creatinine Ratio 15.0 8-20 Calcium 9.0 mg/dL 8.6-10.3 Total Protein 6.9 g/dL 6.4-8.9 Albumin 4.3 g/dL 3.2-5.2 Globulin 2.6 g/dL 2-4 Albumin/Globulin Ratio 1.7 1-3 Total Bilirubin 0.70 mg/dL 0.2-1.0 Alkaline Phosphatase 50 U/L 34-104 Alt 9 U/L 7-52 Ast 11 U/L Low 13-39 Egfr Non- 84.8 >60 Egfr 109.1 >60 33 Laboratory test finding 12/06/2013 Serum Negative Negative 34 CBC Auto Diff 12/06/2013 White Blood Count 7.6 10^3/uL 4.8-10.8 Red Blood Count 4.54 10^6/uL 4.0-5.4 Hemoglobin 13.6 g/dL 12.0-16.0 Hematocrit 40 % 35-47 Mean Corpuscular Volume 87 fL 80-97 Mean Corpuscular Hemoglobin 30 pg 27-31 Mean Corpuscular HGB Conc 35 g/dL 31-36 Red Cell Distribution Width 13 % 10.5-15 Platelet Count 182 10^3/uL 150-450 Mean Platelet Volume 9 um3 7.4-10.4 Abs Neutrophils 4.8 10^3/uL 1.5-7.7 Abs Lymphocytes 1.8 10^3/uL 1.0-4.8 Abs Monocytes 0.8 10^3/uL 0-0.8 Abs Eosinophils 0.1 10^3/uL 0-0.6 Abs Basophils 0 10^3/uL 0-0.2 Abs Nucleated RBC 0 10^3/uL Granulocyte % 63.4 % 38-83 Lymphocyte % 24.0 % Low 25-47 Monocyte % 10.3 % High 1-9 Eosinophil % 1.9 % 0-6 Basophil % 0.4 % 0-2 Nucleated Red Blood Cells % 0 Laboratory test finding 11/18/2013 TSH (Thyroid 1.04 IU/mL 0.34-5.60 Stimulating Horm) Thyroid Autoantibodies 11/18/2013 Thyroglobulin Ab Scrn <20 IU/mL < 116 35 Thyroperoxidase Ab 0.4 IU/mL <9.0 Laboratory test finding 11/18/2013 Free T4 0.89 ng/mL 0.61-1.12 Comp Metabolic Panel 11/18/2013 Sodium 138 mmol/L 133-145 Potassium 4.3 mmol/L 3.7-5.6 Chloride 102 mmol/L 101-111 Co2 Carbon Dioxide 30 mmol/L 22-32 Anion Gap 6 mmol/L 2-11 Glucose 68 mg/dL Low 70-100 Blood Urea Nitrogen 11 mg/dL 6-24 Creatinine 0.74 mg/dL 0.51-0.95 BUN/Creatinine Ratio 14.9 8-20 Calcium 9.3 mg/dL 8.6-10.3 Total Protein 7.1 g/dL 6.4-8.9 Albumin 4.4 g/dL 3.2-5.2 Globulin 2.7 g/dL 2-4 Albumin/Globulin Ratio 1.6 1-3 Total Bilirubin 0.60 mg/dL 0.2-1.0 Alkaline Phosphatase 58 U/L 34-104 Alt 27 U/L 7-52 Ast 30 U/L 13-39 Egfr Non- 92.8 >60 Egfr 119.3 >60 36 Celiac Panel 11/18/2013 Immunoglobulin A 372 mg/dL 61 - 356 Tissue Transglutaminase IgA Ab <1.2 U/mL 37 Celiac Interpretation See Comment 38 Ua Routine 11/18/2013 Ua Specific [place] 1.000 Ua PH 6.5 Ua Color pale Ua Appera clear Ua WBC neg Ua Protein neg Ua Glucose neg Ua Ketones neg Ua Bilirubin neg Ua Urobilinogen neg Ua Nitrite neg Ua Occult Blood neg CBC Auto Diff 11/18/2013 White Blood Count 6.6 10^3/uL 4.8-10.8 Red Blood Count 4.71 10^6/uL 4.0-5.4 Hemoglobin 14.5 g/dL 12.0-16.0 Hematocrit 42 % 35-47 Mean Corpuscular Volume 88 fL 80-97 Mean Corpuscular Hemoglobin 31 pg 27-31 Mean Corpuscular HGB Conc 35 g/dL 31-36 Red Cell Distribution Width 13 % 10.5-15 Platelet Count 202 10^3/uL 150-450 Mean Platelet Volume 10 um3 7.4-10.4 Abs Neutrophils 4.0 10^3/uL 1.5-7.7 Abs Lymphocytes 1.5 10^3/uL 1.0-4.8 Abs Monocytes 0.5 10^3/uL 0-0.8 Abs Eosinophils 0.5 10^3/uL 0-0.6 Abs Basophils 0.1 10^3/uL 0-0.2 Abs Nucleated RBC 0 10^3/uL Granulocyte % 61.5 % 38-83 Lymphocyte % 23.2 % Low 25-47 Monocyte % 7.4 % 1-9 Eosinophil % 6.9 % High 0-6 Basophil % 1.0 % 0-2 Nucleated Red Blood Cells % 0 1 Because ethnic data is not always readily available, this report includes an eGFR for both -Americans and non- Americans. The National Kidney Disease Education Program (NKDEP) does not endorse the use of the MDRD equation for patients that are not between the ages of 18 and 70, are , have extremes of body size, muscle mass, or nutritional status, or are non- or non-. According to the National Kidney Foundation, irrespective of diagnosis, the stage of the disease is based on the level of kidney function: Stage Description GFR(mL/min/1.73 m(2)) 1 Kidney damage with normal or decreased GFR 90 2 Kidney damage with mild decrease in GFR 60-89 3 Moderate decrease in GFR 30-59 4 Severe decrease in GFR 15-29 5 Kidney failure <15 (or dialysis) 2 SEE RESULT BELOW Name: CAITLIN MARY : [address]: Sina Marques MD Acct: [id number] Unit: [id number] AGE: 31 Location: ED Re11/30/16 SEX: F Status: DEP ER SPEC: [id number] JESSENIA: 11/30/[address] [facility] [address]: Sina Marques MD REQ: [id number] RECD: 11/30/16 STATUS: RUDY CRUZ DR: Mary Beth Menjivar MD _ SOURCE: BLOOD,[facility]: ORDERED: Blood Cult Procedure Result Reported Site Aerobic Culture Bottle Final 12/05/16- 902 ML No Growth Day 5 Anaerobic Culture Bottle Final 12/05/16902 ML No Growth Day 5 * ML - MAIN LAB ([facility]) . END OF REPORT * ML=Testing performed at Main Lab DEPARTMENT OF PATHOLOGY, [address] [place] [address] Humble Rose M.D. Director [facility] # [id number] 3 <5.0 Negative 5.0 - 25.0 Indeterminate (Repeat testing recommended after 72 hours) >25.0 Positive Perimenopausal women can display HCG levels of up to 20 mIU/mL 4 Because ethnic data is not always readily available, this report includes an eGFR for both -Americans and non- Americans. The National Kidney Disease Education Program (NKDEP) does not endorse the use of the MDRD equation for patients that are not between the ages of 18 and 70, are , have extremes of body size, muscle mass, or nutritional status, or are non- or non-. According to the National Kidney Foundation, irrespective of diagnosis, the stage of the disease is based on the level of kidney function: Stage Description GFR(mL/min/1.73 m(2)) 1 Kidney damage with normal or decreased GFR 90 2 Kidney damage with mild decrease in GFR 60-89 3 Moderate decrease in GFR 30-59 4 Severe decrease in GFR 15-29 5 Kidney failure <15 (or dialysis) 5 Acute inflammation: >10.00 6 SEE RESULT BELOW Name: CAITLIN MARY : [address]: Anastasia Montero Acct: [id number] Unit: [id number] AGE: 31 Location: [facility] Re10/02/16 SEX: F Status: DEP ER SPEC: [id number] JESSENIA: 10/02/16-[address]: Anastasia Howard DO REQ: [id number] RECD: 10/02/16 STATUS: RUDY CRUZ DR: [facility] Mary Beth Menjivar MD _ SOURCE: URINE [facility]: ORDERED: Urine Culture Procedure Result Reported Site Urine Culture Final 10/03/16- 1630 ML No growth of clinically significant organisms * ML - MAIN LAB ([facility]) . END OF REPORT * ML=Testing performed at Main Lab DEPARTMENT OF PATHOLOGY, [address] [place] [address] Humble Rose M.D. Director [facility] # [id number] ADDITIONAL INFORMATION The thyroglobulin antibody testing method is an immunoenzymatic assay manufactured by [employer] and performed on the DueDil DXI 800. Values obtained from different assay methods or kits may be different and cannot be used interchangeably. The results cannot be interpreted as absolute evidence for the presence or absence of malignant disease. Test Performed by: [address] [address] Gallery Intern: Jeronimo Chapman II, M.D., Ph.D. 8 [id number] SEE RESULT BELOW Name: CAITLIN MARY : [address]: Rolo Sanchez MD Acct: [id number] Unit: [id number] AGE: 31 Location: [facility] Re06/01/16 SEX: F Status: DEP ER SPEC: [id number] JESSENIA: 06/01/[address] [facility] [address]: Rolo Sanchez MD REQ: [id number] RECD: 06/01/16 STATUS: RUDY CRUZ DR: Mary Beth Menjivar MD _ SOURCE: URINE SPDESC: ORDERED: Urine Culture COMMENTS: [id number] Procedure Result Reported Site Urine Culture Final 06/02/16- 0853 ML No Growth (<1,000 CFU/mL) * ML - [facility] ([facility]) . END OF REPORT * ML=Testing performed at Main Lab DEPARTMENT OF PATHOLOGY, [address] [place] [address] Humble Rose M.D. Director [facility] # [id number] 10 SEE RESULT BELOW Name: CAITLIN MARY : [address]: Aicha Jackson MD Acct: [id number] Unit: [id number] AGE: 30 Location: [facility] Re10/19/15 SEX: F Status: DEP ER SPEC: [id number] JESSENIA: 10/19/15-[address] [facility] [address]: Anali Guillen NP REQ: [id number] RECD: 10/20/15 STATUS: RUDY CRUZ DR: [facility] Mary Beth Menjivar MD _ SOURCE: URINE SPDESC: ORDERED: Urine Culture Procedure Result Reported Site Urine Culture Final 10/21/15- 1335 ML No Growth (<1,000 CFU/mL) * ML - MAIN LAB ([facility]) . END OF REPORT * ML=Testing performed at Main Lab DEPARTMENT OF PATHOLOGY, [address] [place] [address] Humble Rose M.D. Director [facility] # [id number] 11 The high-risk HPV types detected by the assay include: 16, 18, 31, 33, 35, 39, 45, 51, 52, 56, 58, 59, 66, and 68. 12 SEE RESULT BELOW Name: DELFINCAITLIN J : [address]: Blake Wang MD Acct: [id number] Unit: [id number] AGE: 30 Location: [facility] Re08/20/15 SEX: F Status: REG REF SPEC: [id number] JESSENIA: 08/20/15-[address] [facility] [address]: Blake Wang MD REQ: [id number] RECD: 08/20/15-7700 STATUS: ESTEVAN CRUZ DR: Mary Beth Menjivar MD _ ORDERED: IMAGE ANALYSIS, HPV/Thin Prep, HPV 16/18 GENE FINAL DIAGNOSIS Negative for Intraepithelial lesion or Malignancy A. Ectocervical/Endocervical Specimen Adequacy: Satisfactory of evaluation Transformation zone component identified Patient Information: HPV: High risk HPV RNA testing regardless of pap results. HPV 16/18 Genotype for HPV pos Actual Specimen Date: 08/20/15 Last Menstrual Date: 08/02/15 ?: N Post Menopausal?: N Hysterectomy?: N Previous Abnormal Pap Smears?:N Date Time Test Result Flag (u) Normal Range 08/20/15 0930 HPV RNA RFLX GE Negative Negative The high-risk HPV types detected by the assay include: 16, 18, 31, 33, 35, 39, 45, 51, 52, 56, 58, 59, 66, and 68. Signed (signature on file) LAUREL Ford (ASCP) 08/23 1422 This Pap test was evaluated with the assistance of the [employer] Test Imaging System. Due to cytologic findings at the cork cutter microscope, comprehensive manual rescreening by a Acquisition Analyst may be required. The Pap Smear is a screening test designed to aid in the detection of premalignant and malignant conditions of the uterine cervix. It is not a diagnostic procedure and should not be used as the sole means of detecting cervical cancer. Both false- positive and false- negative reports do occur. Depending on your risk status, a Pap smear should be obtained and evaluated every 1-3 years. END OF REPORT * ML=Testing performed at Main Lab DEPARTMENT OF PATHOLOGY, [address] [place] [address] Humble Rose M.D. Director [facility] # [id number] 13 Because ethnic data is not always readily available, this report includes an eGFR for both -Americans and non- Americans. The National Kidney Disease Education Program (NKDEP) does not endorse the use of the MDRD equation for patients that are not between the ages of 18 and 70, are , have extremes of body size, muscle mass, or nutritional status, or are non- or non-. According to the National Kidney Foundation, irrespective of diagnosis, the stage of the disease is based on the level of kidney function: Stage Description GFR(mL/min/1.73 m(2)) 1 Kidney damage with normal or decreased GFR 90 2 Kidney damage with mild decrease in GFR 60-89 3 Moderate decrease in GFR 30-59 4 Severe decrease in GFR 15-29 5 Kidney failure <15 (or dialysis) 14 Acute inflammation: >10.00 15 SEE RESULT BELOW Name: CAITLIN MARY : [address]: Karissa Monroy NP Acct: [id number] Unit: [id number] AGE: 30 Location: [facility] Re05/31/15 SEX: F Status: REG REF SPEC: [id number] JESSENIA: 05/31/15-[address]: Karissa Monroy NP REQ: [id number] RECD: 05/31/15 STATUS: COMP _ SOURCE: URINE SPDESC: ORDERED: Urine Culture Procedure Result Verified Site Urine Culture Final 06/02/15- 1119 ML No Growth Day 2 (<1,000 CFU/mL) * ML - MAIN LAB ([facility]) . END OF REPORT * ML=Testing performed at Main Lab DEPARTMENT OF PATHOLOGY, [address] [place] [address] Humble Rose M.D. Director [facility] # [id number] 16 REFERENCE VALUE Athyrotic <0.1 Intact Thyroid <=33 17 Thyroglobulin (Tg) levels must be interpreted in the context of TSH levels, serial Tg measurements and radioiodine ablation status. Tg levels of > or=10 ng/mL in athyrotic individuals on suppressive therapy indicate a significant (>25%) risk of clinically detectable recurrent papillary/follicular thyroid cancer. ADDITIONAL INFORMATION PLEASE NOTE: Thyroglobulin flagging is based on athyrotic reference values. The thyroglobulin and thyroglobulin antibody testing methods are immunoenzymatic assays manufactured by [employer] and performed on the DueDil DXI 800. Values obtained from different assay methods or kits may be different and cannot be used interchangeably. The results cannot be interpreted as absolute evidence for the presence or absence of malignant disease. Test Performed by: [place] [address] Gallery Intern: Jeronimo Chapman II, M.D., Ph.D. 18 Test Performed by: [place] [address] Gallery Intern: Jeronimo Chapman II, M.D., Ph.D. 19 PT IS FASTING 20 PT IS FASTING 21 Normally menstruating females - Follicular phase 3 - 9 - Mid-cycle peak 4 - 23 - Luteal phase 1 - 6 Postmenopausal females 16 - 114 22 PT IS FASTING 23 PT IS FASTING 24 Because ethnic data is not always readily available, this report includes an eGFR for both -Americans and non- Americans. The National Kidney Disease Education Program (NKDEP) does not endorse the use of the MDRD equation for patients that are not between the ages of 18 and 70, are , have extremes of body size, muscle mass, or nutritional status, or are non- or non-. According to the National Kidney Foundation, irrespective of diagnosis, the stage of the disease is based on the level of kidney function: Stage Description GFR(mL/min/1.73 m(2)) 1 Kidney damage with normal or decreased GFR 90 2 Kidney damage with mild decrease in GFR 60-89 3 Moderate decrease in GFR 30-59 4 Severe decrease in GFR 15-29 5 Kidney failure <15 (or dialysis) 25 RUN DATE: 12/06/14 [facility] LAB LIVE PAGE 1 RUN TIME: [address] [place] [address] Specimen Inquiry Name: CAITLIN MARY Sarabjit : [address]: Karissa Monroy NP Acct: [id number] Unit: [id number] AGE: 29 Location: [facility] Re12/04/14 SEX: F Status: REG REF SPEC: [id number] JESSENIA: 12/04/14-[address]: Karissa Monroy NP REQ: [id number] RECD: 12/04/14 STATUS: COMP _ SOURCE: URINE SPDESC: ORDERED: Urine Culture QUERIES: Provider Requisition # [id number] Procedure Result Verified Site Urine Culture Final 12/06/14- 0927 ML No Growth Day 2 (<1,000 CFU/mL) * ML - MAIN LAB ([facility]) . END OF REPORT * ML=Testing performed at Main Lab DEPARTMENT OF PATHOLOGY, [address] [place] [address] Humble Rose M.D. Director [facility] # [id number] 26 ADDITIONAL INFORMATION The thyroglobulin antibody testing method is an immunoenzymatic assay manufactured by [employer] and performed on the UnicLumiant DXI 800. Values obtained from different assay methods or kits may be different and cannot be used interchangeably. The results cannot be interpreted as absolute evidence for the presence or absence of malignant disease. Test Performed by: [place] [address] Gallery Intern: Jeronimo Chapman II, M.D., Ph.D. 27 Comment: b 28 This test detects intact HCG only and is indicated for the early detection of . 29 Because ethnic data is not always readily available, this report includes an eGFR for both -Americans and non- Americans. The National Kidney Disease Education Program (NKDEP) does not endorse the use of the MDRD equation for patients that are not between the ages of 18 and 70, are , have extremes of body size, muscle mass, or nutritional status, or are non- or non-. According to the National Kidney Foundation, irrespective of diagnosis, the stage of the disease is based on the level of kidney function: Stage Description GFR(mL/min/1.73 m(2)) 1 Kidney damage with normal or decreased GFR 90 2 Kidney damage with mild decrease in GFR 60-89 3 Moderate decrease in GFR 30-59 4 Severe decrease in GFR 15-29 5 Kidney failure <15 (or dialysis) 30 Comment: b 31 Reference Range and Interpretation: TnI (ng/mL) Interpretation Less Than 0.03 ng/mL Not supportive of diagnosis of [place] 0.03 - 0.50 ng/mL Indeterminate: suggest serial studies if clinically indicated. Greater than 0.5 ng/mL Consistent with diagnosis of [place] 32 Acute inflammation: >10.00 33 Because ethnic data is not always readily available, this report includes an eGFR for both -Americans and non- Americans. The National Kidney Disease Education Program (NKDEP) does not endorse the use of the MDRD equation for patients that are not between the ages of 18 and 70, are , have extremes of body size, muscle mass, or nutritional status, or are non- or non-. According to the National Kidney Foundation, irrespective of diagnosis, the stage of the disease is based on the level of kidney function: Stage Description GFR(mL/min/1.73 m(2)) 1 Kidney damage with normal or decreased GFR 90 2 Kidney damage with mild decrease in GFR 60-89 3 Moderate decrease in GFR 30-59 4 Severe decrease in GFR 15-29 5 Kidney failure <15 (or dialysis) 34 This test detects intact HCG only and is indicated for the early detection of . 35 If thyroglobulin antibody measurement is performed to assess the reliability of the thyroglobulin assay for thyroid cancer patient follow-up, a thyroglobulin antibody result=/>22 IU/mL may result in falsely decreased thyroglobulin values. The thyroglobulin antibody testing method is an electrochemiluminescence assay manufactured by [employer] and performed on the Modular or Breonna system. Values obtained from different assay methods or kits may be different and cannot be used interchangeably. Test Performed by: [address] [address] Gallery Intern: Ihsan Chávez III, M.D. 36 Because ethnic data is not always readily available, this report includes an eGFR for both -Americans and non- Americans. The National Kidney Disease Education Program (NKDEP) does not endorse the use of the MDRD equation for patients that are not between the ages of 18 and 70, are , have extremes of body size, muscle mass, or nutritional status, or are non- or non-. According to the National Kidney Foundation, irrespective of diagnosis, the stage of the disease is based on the level of kidney function: Stage Description GFR(mL/min/1.73 m(2)) 1 Kidney damage with normal or decreased GFR 90 2 Kidney damage with mild decrease in GFR 60-89 3 Moderate decrease in GFR 30-59 4 Severe decrease in GFR 15-29 5 Kidney failure <15 (or dialysis) 37 -- REFERENCE VALUE -- <4.0 (Negative) Test Performed by: [place] [address] Gallery Intern: Ihsan Chávez III, M.D. 38 Negative serology. Celiac disease unlikely. However, approximately 10% of patients with celiac disease are seronegative. Also, patients who are already adhering to a gluten-free diet may be seronegative. If celiac disease is highly clinically suspected, consider HLA-DQ typing. Test Performed by: [place] [address] Gallery Intern: Ihsan Chávez III, M.D. Procedures Date CPT Code Description Status 07/31/2012 90941 Holter Monitor Review (24 hr)dr lozada & isrrael Completed only Encounters Type Date Location Provider CPT E/M Dx Office Visit 05/15/2017 [facility] Internal Medicine Breana Dotson, [address] S23.3xxA 11:10a - Tahir Louis Office Visit 11/22/2016 [facility] [place] [address] D23.62 8:00a D18.01 Office Visit 11/02/2016 9:00a [facility] Internal Medicine Karissa Monroy, N.P. [address] Z00.01 - [place] G43.109 F41.1 G44.201 L98.9 Office Visit 06/06/2016 3:00p [facility] Internal Medicine Karissa Monroy, N.P. [address]290 F41.1 - [place] E07.89 Office Visit 08/10/2015 2:00p [facility] Christopher Salinas, [address] G43.109 [facility] Heriberto Office Visit 07/09/2015 9:20a [facility] [place] [address] R51 - [place] Office Visit 05/31/2015 11:40a [facility] Internal Medicine Karissa Monroy, N.P. [address] R10.84 - [place] M54.9 Office Visit 12/04/2014 2:20p [facility] Internal Medicine Karissa Monroy, N.P. 25252 626.2 - [place] 780.79 Office Visit 11/24/2014 4:20p [facility] Internal Medicine Karissa Monroy, N.P. 60594 789.00 - [place] 780.79 V18.19 789.04 Office Visit 03/20/2014 11:20a [facility] Internal Medicine Mary Beth Menjivar [address] 789.00 - Jes[place] Louis Office Visit 12/08/2013 2:40p [facility] Internal Medicine Karissa Monroy, N.P. [address] 620.2 - [place] Office Visit 11/18/2013 10:20a [facility] Internal Medicine Mary Beth Menjivar [address] 789.00 - Jesenia Louis V76.51 626.2 Plan of Care 11/07/2017 - Karissa Monroy, N.P.Z00.00 Encntr for general adult medical exam w/ o abnormal findingsComments:For your routine health maintenance: I would encourage you to start a regular exercise program. You have received your Tetanus immunization today. Your arm may be sore for a few days. This is good for 10 years. It also protects you from getting Pertussis, (whooping cough). You need to be getting between 1,000 - 1,200 mg of Calcium in daily. The best way to supplement what you get in your diet is todrink Calcium fortified orange juice. If you take a Calcium supplement be sure it has Vitamin D in it to help absorption. I have given you a health care proxy and advanced directive forms to fill out and return to our office. These are important for us to have on file so we may know what your wishes are if you are unable to express them yourself.F41.1 Generalized anxiety disorderComments:For your anxiety:Continue your current management. If at ay time you feel your symptoms are not wellcontrolled, please contact the office.E07.89 Other specified disorders of thyroidComments:I am ordering blood work to check your thyroid hormones. The office will contact you with the results.R21 Rash and other nonspecific skin eruptionNew Medication:Triamcinolone Acetonide 0.1 %Comments:For your rash I have sent a prescription to the pharmacy for Triamcinolone cream. Apply this to the affected areas until clear. For your ear irritation use the cream in the canal until your symptoms clear.If this is ineffective, please contact the office.
[2017-11-11 19:11] VITALS: BP 116/68
--- NOTE | 2017-11-11 19:39 | UC ---
Throat Pain/Nasal Chip HPI - HPI Summary HPI Summary: patient has an itching in her ear and painful swollen lymph nodes under her ear. she put triamcinolone cream in the ear as she was told she had ezcema in the ear, but has had the swelling since. no throat pain or swallowing difficutly - History of Current Complaint Chief Complaint: UCRespiratory Stated Complaint: SWOLLEN NECK GLANDS Hx Obtained From: Patient Hx Last Menstrual Period: IUD ?: No Onset/Duration: Sudden Onset Pain Intensity: 5 - Allergies/Home Medications Allergies/Adverse Reactions: Allergies Allergy/AdvReac Type Severity Reaction Status Date / Time amoxicillin [From Augmentin] Allergy Hives Verified 11/11/17 19:12 bee venom protein (honey bee) Allergy Anaphylatic Verified 11/11/17 19:12 Shock clavulanic acid Allergy Hives Verified 11/11/17 19:12 [From Augmentin] nitrofurantoin Allergy Hives Verified 11/11/17 19:12 [From Macrobid] Sulfa (Sulfonamide Allergy Hives Verified 11/11/17 19:12 Antibiotics) PMH/Surg Hx/FS Hx/Imm Hx Previously Healthy: Yes - Surgical History Surgical History: Yes Surgery Procedure, Year, and Place: [place] 08[place] [place] [facility] [place] ST[place] PLACEMENT - URETERS-2004 AND [place] [place] [place]. Appendectomy. TUBAL LIGATION - Family History Known Family History: Positive: Other - cancer Negative: Cardiac Disease, Hypertension, Diabetes - Social History Alcohol Use: Occasionally Substance Use Type: None Smoking Status (MU): Former Smoker Type: Cigarettes Amount Used/How Often: socially - Immunization History Most Recent Influenza Vaccination: never Most Recent Tetanus Shot: up to date Review of Systems Constitutional: Negative Skin: Negative Eyes: Negative ENT: Ear Ache Respiratory: Negative Cardiovascular: Negative Gastrointestinal: Negative Genitourinary: Negative Motor: Negative Neurovascular: Negative Musculoskeletal: Negative Neurological: Negative Psychological: Negative Is Patient Immunocompromised?: No All Other Systems Reviewed And Are Negative: Yes Physical Exam Triage Information Reviewed: Yes Appearance: Well-Appearing, Well-Nourished, Pain Distress Vital Signs: Initial Vital Signs Temp 98.8 F 11/11/17 19:09 Pulse 70 11/11/17 19:09 Resp 12 11/11/17 19:09 BP 116/68 11/11/17 19:09 Pulse Ox 98 11/11/17 19:09 Vital Signs Reviewed: Yes Eye Exam: Normal ENT: Positive: Pharynx normal - mild PND, TMs normal, Other - left external auditory canal is covered in thick white exudate Dental Exam: Normal Neck: Positive: Enlarged Nodes @ - on mid left cervical Respiratory Exam: Normal Respiratory: Positive: Chest non-tender, Lungs clear, Normal breath sounds Cardiovascular Exam: Normal Cardiovascular: Positive: RRR, No Murmur, Pulses Normal Abdominal Exam: Normal Musculoskeletal Exam: Normal Neurological Exam: Normal Psychological Exam: Normal Skin Exam: Normal Throat Pain/Nasal Course/Dx - Course Course Of Treatment: hx obtained, exam performed ,meds reviewed, treated for otitis externa and lymphadenopathy - Differential Dx/Diagnosis Differential Diagnosis/HQI/PQRI: Otitis Media, Pharyngitis, Sinusitis, URI Provider Diagnoses: lymphadenopathy of the left cervical. left otitis externa Discharge - Sign-Out/Discharge Documenting (check all that apply): Discharge - Discharge Plan Condition: Stable Disposition: HOME Patient Education Materials: Otitis Externa (ED) Referrals: Mary Beth Menjivar MD [Primary Care Provider] - Additional Instructions: 1. use the medications as prescribed. 2. Follow up if not improving - Billing Disposition and Condition Condition: STABLE Disposition: HOME
== END 2017-11-11 19:50 | disposition home or self-care (01) ==
LOC: UCEAST 19:01
DX: R59.0 Localized enlarged lymph nodes (principal); H60.92 Unspecified otitis externa, left ear; Z88.1 Allergy status to other antibiotic agents; Z88.0 Allergy status to penicillin; Z88.2 Allergy status to sulfonamides; Z72.0 Tobacco use
CPT/HCPCS: 99212; G0463

== ENCOUNTER 2017-12-15 09:07 | Emergency (ER) | payer BC ==
[2017-12-15 09:58] VITALS: BP 106/78
--- NOTE | 2017-12-15 10:04 | UC ---
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 Pt is s/p appendectomy (pt states was actually endometriosis) Pt had tubal ligation and was told endometrosis on round ligament and on bowel. Pt here with mom stating progressive x 36 hours LLQ pain. Pt states has urinary urgency, rectal pressure. Pt with nausea, no vomiting. No fever chills. Pt states intermittently pain is sharp. Pt states position of comfort lying flat, knees flexed. No flatus. No po. Pt states pain feels "different" than she has had with cyst. No vaginal discharge, itching, odor. Pt took Motrin 600mg this morning. No po. Pt with nausea, no vomiting Pt's medications reviewed this visit Pt followed by Dr. Yee - urology - History of Current Complaint Chief Complaint: UCAbdominalPain Stated Complaint: LFT SIDE ABD PAIN Time Seen by Provider: 12/15/17 10:02 Hx Obtained From: Patient Hx Last Menstrual Period: HAS AND IUD, DOES NOT HAVE REG PERIODS Onset/Duration: Gradual Onset, Lasting Days Severity Initially: Moderate Severity Currently: Severe Pain Intensity: 9 Location: Discrete At: LLQ Radiates to: Flank Aggravating Factor(s): Movement Alleviating Factor(s): Position Associated Signs and Symptoms: Positive: Nausea Allergies/Adverse Reactions: Allergies Allergy/AdvReac Type Severity Reaction Status Date / Time amoxicillin [From Augmentin] Allergy Hives Verified 12/15/17 09:58 bee venom protein (honey bee) Allergy Anaphylatic Verified 12/15/17 09:58 Shock clavulanic acid Allergy Hives Verified 12/15/17 09:58 [From Augmentin] nitrofurantoin Allergy Hives Verified 12/15/17 09:58 [From Macrobid] Sulfa (Sulfonamide Allergy Hives Verified 12/15/17 09:58 Antibiotics) Home Medications: Home Medications Levonorgestrel (Iud) [Mirena IUD] 20 mcg IU 12/15/17 [History] PMH/Surg Hx/FS Hx/Imm Hx Previously Healthy: Yes GI/ History: Other Other GI/ History: endometriosis, hydronephorsis, hydroureter - Surgical History Surgical History: Yes Surgery Procedure, Year, and Place: CHOLECYSTECTOMY 08/2012-[facility] [place]. STENT PLACEMENT - URETERS-2004 AND 2005-[facility] [place]- REMOVED. Appendectomy. TUBAL LIGATION - Family History Known Family History: Positive: Other - cancer Negative: Cardiac Disease, Hypertension, Diabetes - Social History Occupation: Employed Full-time Lives: With Family Alcohol Use: Occasionally Substance Use Type: None Smoking Status (MU): Former Smoker Type: Cigarettes Amount Used/How Often: socially - Immunization History Most Recent Influenza Vaccination: never Most Recent Tetanus Shot: up to date Review of Systems Constitutional: Negative Skin: Negative Respiratory: Negative Cardiovascular: Negative Gastrointestinal: Abdominal Pain, Nausea, Other - rectal pain Genitourinary: Urgency All Other Systems Reviewed And Are Negative: Yes Physical Exam Triage Information Reviewed: Yes Appearance: Well-Appearing, Well-Nourished, Pain Distress Vital Signs: Initial Vital Signs Temp 97.7 F 12/15/17 09:50 Pulse 77 12/15/17 09:50 Resp 18 12/15/17 09:50 BP 106/78 12/15/17 09:50 Pulse Ox 100 12/15/17 09:50 Vital Signs Reviewed: Yes Eyes: Positive: Conjunctiva Clear ENT: Positive: Hearing grossly normal Neck exam: Normal Neck: Positive: Supple, Nontender, No Lymphadenopathy Respiratory Exam: Normal Respiratory: Positive: Chest non-tender, Lungs clear, Normal breath sounds, No respiratory distress, No accessory muscle use Cardiovascular Exam: Normal Cardiovascular: Positive: RRR, No Murmur Abdomen Description: Positive: No Organomegaly, Soft, Other: - +TTP LLQ with direct palp. no guarding, no reboud soft + BS/decreased Pain increases in LLQ with palp RLQ No CVA. Negative: Nontender, CVA Tenderness (R), CVA Tenderness ( L), Guarding Bowel Sounds: Positive: Hypoactive Musculoskeletal Exam: Normal Neurological Exam: Normal Neurological: Positive: Alert Psychological Exam: Normal Psychological: Positive: Normal Response To Family Skin Exam: Normal Abd Pain Female Course/Dx - Course Course Of Treatment: pt with progressive LLQ pain. urine with trace leuks, no blood. neg. Differential includes endometriosis, hydroureter, ovarian cyst. d/w pt at length - will refer to ED for further eval and treat. mom will drive. Will give APAP and zofran prior to discharge. Will go [facility] [place] second Dr. Yee. Spoke with Dr. Holder - aware of pt coming to ED - Differential Dx/Diagnosis Provider Diagnoses: llq pain Discharge - Sign-Out/Discharge Documenting (check all that apply): Discharge/Admit/Transfer - Discharge Plan Condition: Stable Disposition: HOME Discharge Disposition Comment: You have been referred to the ED at [facility] for evaluation Patient Education Materials: Acute Abdominal Pain (ED) Referrals: Mary Beth Menjivar MD [Primary Care Provider] - Additional Instructions: The doctor that evaluated you is concerned about your abdominal pain. It is recommended you go to the emergency department for further evaluation and treatment. They are expecting you. If your symptoms change enroute, hand assembler for puller over and call 911 - Billing Disposition and Condition Condition: STABLE Disposition: HOME
[2017-12-15] MEDS ORDERED: Acetaminophen TAB* 325 MG PO ONE (10:36)
[2017-12-15] MEDS ORDERED: Ondansetron ODT TAB* 4 MG PO ONE (10:41)
== END 2017-12-15 10:53 | disposition home or self-care (01) ==
LOC: UCCORT 09:07
DX: R10.32 Left lower quadrant pain (principal); Z87.448 Personal history of other diseases of urinary system; Z87.891 Personal history of nicotine dependence; Z88.3 Allergy status to other anti-infective agents; Z88.8 Allergy status to other drugs, medicaments and biological substances
CPT/HCPCS: 81003; 84702; 87086; 99212; A9270-GY; G0463

== ENCOUNTER 2017-12-15 11:48 | Emergency (ER) | payer BC ==
[2017-12-15 12:43] LABS: Hematocrit 37 % (35-47); Hemoglobin 12.9 g/dl (12.0-16.0); Mean Corpuscular HGB Conc 35 g/dl (31-36); Mean Corpuscular Hemoglobin 31 pg (27-31); Mean Corpuscular Volume 90 fL (80-97); Mean Platelet Volume 8.4 um3 (7.4-10.4); Platelet Count 171 10^3/ul (150-450); Red Blood Count 4.16 10^6/ul (4.0-5.4); Red Cell Distribution Width 13 % (10.5-15); White Blood Count 7.2 10^3/ul (3.5-10.8)
[2017-12-15 12:49] LABS: Urine Appearance Clear; Urine Blood Negative (Negative); Urine Color Straw; Urine Ketones Negative (Negative); Urine Protein Negative (Negative); Urine Specific Gravity 1.004 (1.010-1.030); Urine Urobilinogen Negative (Negative)
[2017-12-15 12:49] LABS: ABS Basophils 0 10^3/ul (0-0.2); ABS Eosinophils 0.1 10^3/ul (0-0.6); ABS Lymphocytes 1.8 10^3/ul (1.0-4.8); ABS Monocytes 0.7 10^3/ul (0-0.8); ABS Neutrophils 4.6 10^3/ul (1.5-7.7); ABS Nucleated RBC 0 10^3/ul; Eosinophil % 1.8 % (0-6); Nucleated Red Blood Cells % 0
[2017-12-15 13:02] LABS: EGFR Non-African American 83.8 (>60)
[2017-12-15] MEDS ORDERED: Iohexol 300* (CONTRAST) 10 ML SDV IV ONE (13:05)
--- NOTE | 2017-12-15 13:34 | RAD ---
HISTORY: Left lower quadrant pain COMPARISONS: June 01, 2016 TECHNIQUE: Multiple transverse and longitudinal ultrasound images were obtained of the pelvis using grayscale, color Doppler, and spectral Doppler imaging using the transabdominal transducer. FINDINGS: UTERUS: The uterus measures 10.7 x 5.7 x 5.9 cm. The uterus is normal in shape, size, contour, and echotexture. ENDOMETRIUM: The endometrial stripe is smooth. An IUD is noted centrally within the endometrial cavity towards the fundus. CUL-DE-SAC: There is no free fluid within the cul-de-sac. RIGHT OVARY: The right ovary measures 3 x 1.8 x 3.6 cm. Normal arterial and venous waveforms are identifiable within the ovary on spectral Doppler imaging. LEFT OVARY: The left ovary measures 4.7 x 4.1 x 4.6 cm. There is a 3.8 x 3.8 x 3.2 cm simple cyst of the left ovary. Normal arterial and venous waveforms are identifiable within the ovary on spectral Doppler imaging. BLADDER: The visualized bladder is unremarkable. OTHER: None IMPRESSION: 1. AN IUD IS NOTED CENTRALLY WITHIN THE ENDOMETRIAL CAVITY TOWARDS THE FUNDUS. 2. 3.8 CM SIMPLE CYST OF THE LEFT OVARY. 3. NO SONOGRAPHIC FEATURES OF TORSION. PLEASE NOTE THAT PARTIAL OR INTERMITTENT TORSION MAY BE SONOGRAPHICALLY NORMAL.
[2017-12-15] MEDS ORDERED: Morphine VIAL* 4 MG/ML VIAL (1 ml vial) IV ONE (13:35)
[2017-12-15] MEDS ORDERED: Metoclopramide IV* 5 MG/ML 2 ML VIAL IV ONE (13:35)
--- NOTE | 2017-12-15 13:41 | ED ---
Abdominal Pain/Female - HPI Summary HPI Summary: The patient is a 32-year-old female presenting from urgent care with a chief complaint of left lower quadrant tenderness. She first noticed the pain yesterday afternoon while she was urinating. This lasted for approximately 10 minutes and then dissipated. A few hours later she endorses worsening left lower quadrant pain approximately 5 minutes after she urinated, but not during. This episode lasted approximately 30 minutes. Later in the evening as she was standing from sitting, she began to feel 10/10 pain to the left lower quadrant. Since that time there has been 2 more episodes which are similar. She feels better with lying or sitting, worse with standing. Symptoms are now not worse with urination, but worse with pressure. Symptoms are aggravated with eating or drinking or relieved with it. She has never had this type of pain in the past. History of ovarian cysts bilaterally. History of appendectomy and tubal ligation. Denies any fevers, sweats, chills. Endorses nausea, but denies any vomiting, constipation, diarrhea. Last bowel movement yesterday. She does not get regular periods anymore as she has the Mirena IUD in place. Denies any urinary symptoms including frequency, burning, urgency. - History of Current Complaint Chief Complaint: EDAbdPain Stated Complaint: ABD PAIN Time Seen by Provider: 12/15/17 12:08 Hx Obtained From: Patient Hx Last Menstrual Period: HAS AND IUD, DOES NOT HAVE REG PERIODS ?: No Onset/Duration: Sudden Onset Timing: Intermittent Episode Lasting - minutes Severity Initially: Moderate Severity Currently: Mild Pain Intensity: 6 Pain Scale Used: 0-10 Numeric Location: Discrete At: LLQ Radiates: No Character: Sharp Aggravating Factor(s): Nothing Alleviating Factor(s): Position - sitting/standing improves the pain Associated Signs and Symptoms: Positive: Negative - Risk Factors Ectopic Risk Factor: Maternal Age ^ 30, Tubal Ligation Ovarian Torsion Risk Factor: Reproductive Age, Ovarian Cysts/Tumors, Tubal Ligation Allergies/Adverse Reactions: Allergies Allergy/AdvReac Type Severity Reaction Status Date / Time amoxicillin [From Augmentin] Allergy Hives Verified 12/15/17 12:01 bee venom protein (honey bee) Allergy Anaphylatic Verified 12/15/17 12:01 Shock clavulanic acid Allergy Hives Verified 12/15/17 12:01 [From Augmentin] nitrofurantoin Allergy Hives Verified 12/15/17 12:01 [From Macrobid] Sulfa (Sulfonamide Allergy Hives Verified 12/15/17 12:01 Antibiotics) PMH/Surg Hx/FS Hx/Imm Hx Previously Healthy: Yes Endocrine/Hematology History: Reports: Hx Thyroid Disease - Thyroiditis Denies: Hx Diabetes Cardiovascular History: Denies: Hx Hypertension, Hx Pacemaker/ICD GI History: Reports: Hx Gall Bladder Disease - OUT IN AUG 2011, Hx Gastroesophageal Reflux Disease - HX OF- NO PROBLEMS AT PRESENT, Hx Irritable Bowel, Hx Ulcer - HX OF BUT NOT AT PRESENT History: Reports: Hx Kidney Infection, Other Problems/Disorders - ENDOMETRIOSIS, ADENOMYOSIS Denies: Hx Renal Disease Musculoskeletal History: Reports: Hx Tendonitis - RIGHT HAND Sensory History: Reports: Hx Contacts or Glasses - INSTRUCTS GIVEN Denies: Hx Hearing Aid Opthamlomology History: Reports: Hx Contacts or Glasses - INSTRUCTS GIVEN Neurological History: Reports: Hx Migraine - MONTHLY- TREATS WITH IBUPROFEN AND SLEEP Denies: Other Neuro Impairments/Disorders Psychiatric History: Reports: Hx Anxiety - ON PAXIL FOR Denies: Hx Panic Disorder - Surgical History Surgery Procedure, Year, and Place: CHOLECYSTECTOMY 08/2012-[facility] [place]. STENT PLACEMENT - URETERS-2004 AND 2005-[facility] [place]- REMOVED. Appendectomy. TUBAL LIGATION Hx Anesthesia Reactions: No - Immunization History Hx Pertussis Vaccination: No Immunizations Up to Date: Unable to Obtain/Confirm Infectious Disease History: No Infectious Disease History: Denies: History Other Infectious Disease, Traveled Outside the [place] in Last 30 Days - Family History Known Family History: Positive: Other - cancer Negative: Cardiac Disease, Hypertension, Diabetes - Social History Occupation: Employed Full-time Lives: With Family Alcohol Use: Occasionally Hx Substance Use: No Substance Use Type: Reports: None Hx Tobacco Use: Yes Smoking Status (MU): Former Smoker Type: Cigarettes Amount Used/How Often: socially Review of Systems Constitutional: Negative Negative: Fever, Chills, Fatigue, Skin Diaphoresis Eyes: Negative Cardiovascular: Negative Respiratory: Negative Positive: Abdominal Pain - LLQ, Nausea Genitourinary: Negative Positive: no symptoms reported, see HPI Musculoskeletal: Negative Neurological: Negative All Other Systems Reviewed And Are Negative: Yes Physical Exam Triage Information Reviewed: Yes Vital Signs On Initial Exam: Initial Vitals Temp Pulse Resp BP Pulse Ox 98 F 77 16 108/69 99 12/15/17 12:02 12/15/17 12:02 12/15/17 12:02 12/15/17 12:02 12/15/17 12:02 Vital Signs Reviewed: Yes Appearance: Positive: Well-Appearing, Well-Nourished Skin: Positive: Warm, Skin Color Reflects Adequate Perfusion Head/Face: Positive: Normal Head/Face Inspection Eyes: Positive: EOMI, MINAL Neck: Positive: Nontender Respiratory/Lung Sounds: Positive: Clear to Auscultation, Breath Sounds Present Abdomen Description: Positive: Soft, Other: - tenderness to the LLQ without palpable masses Neurological: Positive: Sensory/Motor Intact, Alert, Oriented to Person Place, Time Psychiatric: Positive: Affect/Mood Appropriate AVPU Assessment: Alert Diagnostics - Vital Signs Vital Signs Temp Pulse Resp BP Pulse Ox 12/15/17 13:35 71 123/80 100 12/15/17 12:14 70 121/71 98 12/15/17 12:13 71 96 12/15/17 12:02 98 F 77 16 108/69 99 - Laboratory Lab Results: Lab Results 12/15/17 12/15/17 12/15/17 Range/Units 12:31 12:34 12:34 WBC 7.2 (3.5-10.8) 10^3/ul RBC 4.16 (4.0-5.4) 10^6/ul Hgb 12.9 (12.0-16.0) g/dl Hct 37 (35-47) % MCV 90 (80-97) fL MCH 31 (27-31) pg MCHC 35 (31-36) g/dl RDW 13 (10.5-15) % Plt Count 171 (150-450) 10^3/ul MPV 8.4 (7.4-10.4) um3 Neut % (Auto) 62.9 (38-83) % Lymph % (Auto) 25.0 (25-47) % Lamb % (Auto) 9.8 H (0-7) % Eos % (Auto) 1.8 (0-6) % Baso % (Auto) 0.5 (0-2) % Absolute Neuts (auto) 4.6 (1.5-7.7) 10^3/ul Absolute Lymphs (auto) 1.8 (1.0-4.8) 10^3/ul Absolute Monos (auto) 0.7 (0-0.8) 10^3/ul Absolute Eos (auto) 0.1 (0-0.6) 10^3/ul Absolute Basos (auto) 0 (0-0.2) 10^3/ul Absolute Nucleated RBC 0 10^3/ul Nucleated RBC % 0 Sodium 137 L (139-145) mmol/L Potassium 4.0 (3.5-5.0) mmol/L Chloride 107 (101-111) mmol/L Carbon Dioxide 28 (22-32) mmol/L Anion Gap 2 (2-11) mmol/L BUN 13 (6-24) mg/dL Creatinine 0.79 (0.51-0.95) mg/dL Est GFR ( Amer) 107.8 (>60) Est GFR (Non-Af Amer) 83.8 (>60) BUN/Creatinine Ratio 16.5 (8-20) Glucose 114 H (70-100) mg/dL Lactic Acid (0.5-2.0) mmol/L Calcium 8.6 (8.6-10.3) mg/dL Total Bilirubin 0.70 (0.2-1.0) mg/dL AST 12 L (13-39) U/L ALT 11 (7-52) U/L Alkaline Phosphatase 44 (34-104) U/L C-React Prot High Sens 1.27 mg/L Total Protein 6.3 L (6.4-8.9) g/dL Albumin 3.7 (3.2-5.2) g/dL Globulin 2.6 (2-4) g/dL Albumin/Globulin Ratio 1.4 (1-3) Beta HCG, Quant < 0.60 mIU/mL Urine Color Straw Urine Appearance Clear Urine pH 7.0 (5-9) Ur Specific [place] 1.004 L (1.010-1.030) Urine Protein Negative (Negative) Urine Ketones Negative (Negative) Urine Blood Negative (Negative) Urine Nitrate Negative (Negative) Urine Bilirubin Negative (Negative) Urine Urobilinogen Negative (Negative) Ur Leukocyte Esterase Negative (Negative) Urine Glucose Negative (Negative) 12/15/17 Range/Units 12:34 WBC (3.5-10.8) 10^3/ul RBC (4.0-5.4) 10^6/ul Hgb (12.0-16.0) g/dl Hct (35-47) % MCV (80-97) fL MCH (27-31) pg MCHC (31-36) g/dl RDW (10.5-15) % Plt Count (150-450) 10^3/ul MPV (7.4-10.4) um3 Neut % (Auto) (38-83) % Lymph % (Auto) (25-47) % Lamb % (Auto) (0-7) % Eos % (Auto) (0-6) % Baso % (Auto) (0-2) % Absolute Neuts (auto) (1.5-7.7) 10^3/ul Absolute Lymphs (auto) (1.0-4.8) 10^3/ul Absolute Monos (auto) (0-0.8) 10^3/ul Absolute Eos (auto) (0-0.6) 10^3/ul Absolute Basos (auto) (0-0.2) 10^3/ul Absolute Nucleated RBC 10^3/ul Nucleated RBC % Sodium (139-145) mmol/L Potassium (3.5-5.0) mmol/L Chloride (101-111) mmol/L Carbon Dioxide (22-32) mmol/L Anion Gap (2-11) mmol/L BUN (6-24) mg/dL Creatinine (0.51-0.95) mg/dL Est GFR ( Amer) (>60) Est GFR (Non-Af Amer) (>60) BUN/Creatinine Ratio (8-20) Glucose (70-100) mg/dL Lactic Acid 0.8 (0.5-2.0) mmol/L Calcium (8.6-10.3) mg/dL Total Bilirubin (0.2-1.0) mg/dL AST (13-39) U/L ALT (7-52) U/L Alkaline Phosphatase (34-104) U/L C-React Prot High Sens mg/L Total Protein (6.4-8.9) g/dL Albumin (3.2-5.2) g/dL Globulin (2-4) g/dL Albumin/Globulin Ratio (1-3) Beta HCG, Quant mIU/mL Urine Color Urine Appearance Urine pH (5-9) Ur Specific [place] (1.010-1.030) Urine Protein (Negative) Urine Ketones (Negative) Urine Blood (Negative) Urine Nitrate (Negative) Urine Bilirubin (Negative) Urine Urobilinogen (Negative) Ur Leukocyte Esterase (Negative) Urine Glucose (Negative) Result Diagrams: 12/15/17 12:34 12/15/17 12:34 Lab Statement: Any lab studies that have been ordered have been reviewed, and results considered in the medical decision making process. Abdominal Pain Fem Course/Dx - Course Course Of Treatment: During the course of treatment, the patient is evaluated for left lower quadrant pain coming from [facility]. She states the pain is intermittent, throbbing and rated a 10 out of 10 when present. Denies any vomiting, diarrhea, constipation. Has never had a history of diverticulitis. History of ovarian cysts and tubal ligation which is high risk for ovarian torsion. This is less likely, however ultrasound obtained to evaluate for such. I discussed with the patient starting the process for a CT abdomen/ pelvis and if we find a pathology on the ultrasound report, we can cancel at that time. Patient is okay with this plan. 10 mg Reglan and 4 mg Zofran given. IMPRESSION: 1. AN IUD IS NOTED CENTRALLY WITHIN THE ENDOMETRIAL CAVITY TOWARDS THE FUNDUS. 2. 3.8 CM SIMPLE CYST OF THE LEFT OVARY. 3. NO SONOGRAPHIC FEATURES OF TORSION. PLEASE NOTE THAT PARTIAL OR INTERMITTENT TORSION. MAY BE SONOGRAPHICALLY NORMAL. Physical exam shows left lower quadrant tenderness. Labs are obtained and are unremarkable. She is also afebrile. Morphine and Reglan with good effect. Discussed results with patient. Discussed obtaining a CT at this time and the risks and benefits of such. While this is a LLQ pain, most common causes are ovarian cysts, ovary torsion, and diverticulitis. She continues to have bowel movements and passing gas and I am not worried about an SBO. negative. UA negative. Patient at this time declines the CT and will return if symptoms persist or change. She is given a follow-up to [facility] to follow changes in size and risks. She is given tramadol and Zofran for relief of her symptoms. She remains afebrile with otherwise stable vital signs. - Diagnoses Differential Diagnosis: Positive: Ovarian Cyst, Urinary Tract Infection Provider Diagnoses: Ovarian cyst Discharge - Sign-Out/Discharge Documenting (check all that apply): Discharge/Admit/Transfer - Discharge Plan Condition: Stable Disposition: HOME Prescriptions: Ondansetron ODT TAB* [Zofran 4 MG Odt TAB*] 4 mg PO Q6H PRN #12 tab.odt MDD 4 PRN Reason: Nausea traMADol TAB* [Ultram*] 50 mg PO Q8H PRN #12 tab MDD 3 PRN Reason: Pain Patient Education Materials: Ovarian Cyst (ED) Referrals: Mary Beth Menjivar MD [Primary Care Provider] - Lissett Turner MD [Medical Doctor] - Additional Instructions: Please follow up with [facility] If he develop any worsening or changing symptoms, return to the ED immediately Tramadol 50 mg 3 times daily as needed for pain Zofran ODT as needed for any nausea Heat packs to the area may help with your symptoms - Billing Disposition and Condition Condition: STABLE Disposition: HOME
[2017-12-15 14:19] VITALS: BP 120/81
== END 2017-12-15 14:18 | disposition home or self-care (01) ==
LOC: ED 11:48
DX: N83.292 Other ovarian cyst, left side (principal); Z97.5 Presence of (intrauterine) contraceptive device; Z98.51 Tubal ligation status; Z87.891 Personal history of nicotine dependence; Z88.3 Allergy status to other anti-infective agents; Z88.2 Allergy status to sulfonamides
CPT/HCPCS: 36415; 76856; 80053; 81003; 83605; 84702; 85025; 86141; 96374; 96375; 99282; J2270; J2765

== ENCOUNTER 2018-02-05 11:08 | Emergency (ER) | payer BC ==
[2018-02-05 11:24] VITALS: BP 115/77
--- NOTE | 2018-02-05 11:31 | UC ---
Abdominal Pain Female HPI - HPI Summary HPI Summary: 33 yo female presents with RUQ pain radiating to the right flank for the last 3 days. Pain is cramping in nature and sometimes sharp - intermittent. She had her gallbladder and appendix removed years ago. Also mentions that she has noticed some urinary frequency. Intermittent nausea. She is still eating and drinking as usual. Of note, she has had hydronephrosis twice in her life - once due to and once from a "ureter blockage". Last BM was this morning and was normal for her. Denies fever, chills, SOB, CARPIO, chest pain, vomiting, diarrhea, constipation, dysuria, or hematuria. - History of Current Complaint Chief Complaint: UCAbdominalPain Stated Complaint: BACK PAIN Time Seen by Provider: 02/05/18 11:30 Hx Obtained From: Patient Hx Last Menstrual Period: IUD Onset/Duration: Sudden Onset Severity Initially: Moderate Severity Currently: Moderate Pain Intensity: 5 Pain Scale Used: 0-10 Numeric Location: Discrete At: RUQ Radiates to: Flank Allergies/Adverse Reactions: Allergies Allergy/AdvReac Type Severity Reaction Status Date / Time amoxicillin [From Augmentin] Allergy Hives Verified 02/05/18 11:16 bee venom protein (honey bee) Allergy Anaphylatic Verified 02/05/18 11:16 Shock clavulanic acid Allergy Hives Verified 02/05/18 11:16 [From Augmentin] nitrofurantoin Allergy Hives Verified 02/05/18 11:16 [From Macrobid] Sulfa (Sulfonamide Allergy Hives Verified 02/05/18 11:16 Antibiotics) Home Medications: Home Medications Norethindrone-Ethinyl Estrad [Nortrel 0.5/35 (28) 0.5-35 mg-Mcg] 1 tab PO DAILY 02/05/18 [History Confirmed 02/05/18] PMH/Surg Hx/FS Hx/Imm Hx Previously Healthy: Yes Psychological History: Anxiety - Surgical History Surgical History: Yes Surgery Procedure, Year, and Place: [place] [place] ST[place]ACEMENT - [place]TERS-2004 [place] [place]. Appendectomy. TUBAL LIGATION - Family History Known Family History: Positive: Other - cancer Negative: Cardiac Disease, Hypertension, Diabetes - Social History Occupation: Employed Full-time Lives: With Family Alcohol Use: Occasionally Substance Use Type: None Smoking Status (MU): Former Smoker Type: Cigarettes Amount Used/How Often: socially - Immunization History Most Recent Influenza Vaccination: never Most Recent Tetanus Shot: up to date Review of Systems Constitutional: Negative Skin: Negative Eyes: Negative ENT: Negative Respiratory: Negative Cardiovascular: Negative Gastrointestinal: Abdominal Pain, Nausea Genitourinary: Negative Motor: Negative Neurovascular: Negative Neurological: Negative Psychological: Negative All Other Systems Reviewed And Are Negative: Yes Physical Exam - Summary Physical Exam Summary: GENERAL: NAD. WDWN. No pain distress. SKIN: No rashes, sores, lesions, or open wounds. NECK: Supple. Nontender. No lymphadenopathy. CHEST: CTAB. No r/r/w. No accessory muscle use. Breathing comfortably and in no distress. CV: RRR. Without m/r/g. Pulses intact. Brisk cap refill. ABDOMEN: Mild TTP RUQ. No distention or guarding. No organomegaly. No CVA tenderness. Bowel sounds present. NEURO: Alert. CN II-XII grossly intact. PSYCH: Age appropriate behavior. Triage Information Reviewed: Yes Vital Signs: Initial Vital Signs Temp 98.3 F 02/05/18 11:14 Pulse 75 02/05/18 11:14 Resp 18 02/05/18 11:14 BP 115/77 02/05/18 11:14 Pulse Ox 97 02/05/18 11:14 Laboratory Tests 02/05/18 02/05/18 11:37 11:40 POC Urine Color Yellow POC Urine Clarity Clear POC Urine pH 7.0 POC Ur Specif [place] <= 1.005 L POC Urine Protein Negative POC Ur Glucose (UA) Negative POC Urine Ketones Negative POC Urine Blood Trace-intact A POC Urine Nitrite Negative POC Urine Bilirubin Negative POC Urine Urobilinogen 0.2 POC U Leukocyte Esteras Negative POC Ur Test Negative Abd Pain Female Course/Dx - Course Course Of Treatment: CT: IMPRESSION: 1. NO EVIDENCE FOR ACUTE FINDING OR CAUSE FOR THE PATIENT'S ABDOMINAL PAIN IS SEEN. 2. STATUS POST CHOLECYSTECTOMY AND APPENDECTOMY. [place] better after having Zofran in clinic. Will draw for CBC, CMP , and lipase. I am unsure as to the cause of her pain and have advised her to monitor her symptoms and go to the ED if her pain worsens or persists. - Differential Dx/Diagnosis Provider Diagnoses: RUQ pain Discharge - Sign-Out/Discharge Documenting (check all that apply): Patient Departure - Discharge Plan Condition: Stable Disposition: HOME Patient Education Materials: Abdominal Pain (ED) Referrals: Mary Beth Menjivar MD [Primary Care Provider] - Additional Instructions: If you develop a fever, shortness of breath, chest pain, new or worsening symptoms - please call your PCP or go to the ED. I am unsure the cause of your abdominal pain. If your symptoms worsen - please go to the ER or follow up with your Primary Doctor. May take your Zofran at home every 6-8hours as needed for nausea - Billing Disposition and Condition Condition: STABLE Disposition: Home
[2018-02-05] MEDS ORDERED: Ondansetron ODT TAB* 4 MG PO ONE (11:36)
--- NOTE | 2018-02-05 12:26 | RAD ---
INDICATION: Right upper quadrant pain, history of hydronephrosis. COMPARISON: Correlation is made with a prior CT of the abdomen and pelvis from October 02, 2016. Correlation is also made with a prior study from October 19, 2015. TECHNIQUE: A CT scan of the abdomen and pelvis was performed without intravenous and without oral contrast. Contiguous axial sections were obtained from the lung bases through the symphysis pubis. Images were reconstructed in the coronal and sagittal planes. FINDINGS: The lung bases are clear. No pleural effusion is present. The liver and spleen are normal in size without significant focal abnormality on this noncontrast study. The patient is status post cholecystectomy. The pancreas appears to be within normal limits. The adrenal glands and kidneys are normal in size. No renal calculi are seen. There are slightly prominent extrarenal pelvises. No hydronephrosis is noted. There is a calcification which projects posterior to the urinary bladder on the right side on the axial images which appears to be within the uterus on the sagittal reconstructed images and unchanged from prior studies. No bladder calculi are seen. The aorta is normal in caliber without significant calcific plaque. No significant enlarged retroperitoneal lymph nodes are seen. The stomach, small and large bowel appear nondistended. The patient is status post appendectomy. There is scattered diverticuli within the colon. There is no evidence for diverticulitis or colitis. The uterus is anteverted and normal in size. There is a T-shaped IUD present. No free intraperitoneal air or fluid is seen. No significant focal osseous abnormality is seen. IMPRESSION: 1. NO EVIDENCE FOR ACUTE FINDING OR CAUSE FOR THE PATIENT'S ABDOMINAL PAIN IS SEEN. 2. STATUS POST CHOLECYSTECTOMY AND APPENDECTOMY.
[2018-02-05 15:42] LABS: ABS Basophils 0 10^3/ul (0-0.2); ABS Eosinophils 0.1 10^3/ul (0-0.6); ABS Lymphocytes 2.3 10^3/ul (1.0-4.8); ABS Monocytes 0.6 10^3/ul (0-0.8); ABS Neutrophils 5.6 10^3/ul (1.5-7.7); ABS Nucleated RBC 0 10^3/ul; Hematocrit 42 % (35-47); Hemoglobin 14.7 g/dl (12.0-16.0); Lymphocyte % 26.4 % (25-47); Mean Corpuscular HGB Conc 35 g/dl (31-36); Mean Corpuscular Hemoglobin 31 pg (27-31); Mean Corpuscular Volume 90 fL (80-97); Mean Platelet Volume 9.8 um3 (7.4-10.4); Nucleated Red Blood Cells % 0; Platelet Count 203 10^3/ul (150-450); Red Blood Count 4.71 10^6/ul (4.00-5.40); Red Cell Distribution Width 13 % (10.5-15); White Blood Count 8.6 10^3/ul (3.5-10.8)
[2018-02-05 16:07] LABS: EGFR Non-African American 72.6 (>60)
== END 2018-02-05 12:35 | disposition home or self-care (01) ==
LOC: UCEAST 11:08
DX: R10.11 Right upper quadrant pain (principal); Z88.0 Allergy status to penicillin; Z91.030 Bee allergy status; Z88.1 Allergy status to other antibiotic agents; Z88.2 Allergy status to sulfonamides; Z87.891 Personal history of nicotine dependence; Z90.49 Acquired absence of other specified parts of digestive tract
CPT/HCPCS: 36415; 74176; 80053; 81003; 83690; 84702; 85025; 99212; A9270-GY; G0463

== ENCOUNTER 2018-08-05 07:52 | Emergency (ER) | payer BC ==
--- NOTE | 2018-08-05 08:02 | UC ---
Ear Complaint HPI - HPI Summary HPI Summary: 33 yo female presents with LEFT ear pain since yesterday. Some decreased hearing and clear thin drainage from the ear. 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 Denies fever or injury to the ear - History of Current Complaint Stated Complaint: L EAR COMPLAINT Time Seen by Provider: 08/05/18 08:00 Hx Obtained From: Patient Hx Last Menstrual Period: IUD Onset/Duration: Sudden Onset Severity Initially: Mild Severity Currently: Moderate Pain Intensity: 5 Pain Scale Used: 0-10 Numeric - Allergies/Home Medications Allergies/Adverse Reactions: Allergies Allergy/AdvReac Type Severity Reaction Status Date / Time amoxicillin [From Augmentin] Allergy Hives Verified 08/05/18 08:02 bee venom protein (honey bee) Allergy Anaphylatic Verified 08/05/18 08:02 Shock clavulanic acid Allergy Hives Verified 08/05/18 08:02 [From Augmentin] nitrofurantoin Allergy Hives Verified 08/05/18 08:02 [From Macrobid] Sulfa (Sulfonamide Allergy Hives Verified 08/05/18 08:02 Antibiotics) Home Medications: Home Medications Ibuprofen TAB* [Motrin TAB* 800 MG] 800 mg PO ONCE 08/05/18 [History Confirmed 08/05/18] PMH/Surg Hx/FS Hx/Imm Hx - Additional Past Medical History Additional PMH: None Psychological History: Anxiety, Depression - Surgical History Surgical History: Yes Surgery Procedure, Year, and Place: CHOLECYSTECTOMY 08/2012-[facility] [place]. STENT PLACEMENT - URETERS-2004 AND 2005-[facility] [place]- REMOVED. Appendectomy. TUBAL LIGATION - Family History Known Family History: Positive: Other - cancer Negative: Cardiac Disease, Hypertension, Diabetes - Social History Occupation: Employed Full-time Lives: With Family Alcohol Use: Occasionally Substance Use Type: None Smoking Status (MU): Former Smoker Type: Cigarettes Amount Used/How Often: socially - Immunization History Most Recent Influenza Vaccination: never Most Recent Tetanus Shot: up to date Review of Systems All Other Systems Reviewed And Are Negative: Yes Constitutional: Positive: Negative Skin: Positive: Negative Eyes: Positive: Negative ENT: Positive: Ear Ache Respiratory: Positive: Negative Cardiovascular: Positive: Negative Gastrointestinal: Positive: Negative Neurological: Positive: Negative Psychological: Positive: Negative Physical Exam - Summary Physical Exam Summary: GENERAL: NAD. WDWN. No pain distress. SKIN: No rashes, sores, lesions, or open wounds. HEENT: Head: AT/NC Eyes: EOM intact. Conjunctiva clear without inflammation or discharge. Ears: Hearing grossly normal. RIGHT EAR: WNL. TM intact. No canal edema or drainage. LEFT EAR: Moderate canal edema and mild clear/white discharge. TM intact and without erythema. Nose: Nasal mucosa pink and moist. NTTP maxillary and frontal sinus. Throat: Posterior oropharynx without exudates, erythema, or tonsillar enlargement. Uvula midline. NECK: Supple. Nontender. No lymphadenopathy. CHEST: CTAB. No r/r/w. No accessory muscle use. Breathing comfortably and in no distress. CV: RRR. Without m/r/g. Pulses intact. NEURO: Alert. PSYCH: Age appropriate behavior. Triage Information Reviewed: Yes Vital Signs: Vital Signs: Temp Pulse Resp BP Pulse Ox 97.7 F 84 16 106/77 98 08/05/18 08:04 08/05/18 08:04 08/05/18 08:04 08/05/18 08:04 08/05/18 08:04 Vital Signs Reviewed: Yes Ear Complaint Course/Dx - Course Course Of Treatment: Otitis externa left - Differential Dx/Diagnosis Provider Diagnosis: Otitis externa Discharge - Sign-Out/Discharge Documenting (check all that apply): Patient Departure All imaging exams completed and their final reports reviewed: No Studies - Discharge Plan Condition: Stable Disposition: HOME Prescriptions: Ofloxacin 0.3% (Ear Drop)* [Floxin 0.3% OTIC.IZZY (Ear Drop)] 5 drop LEFT EAR BID #1 btl Patient Education Materials: Otitis Externa (DC) Referrals: Mary Beth Menjivar MD [Primary Care Provider] - Additional Instructions: If you develop a fever, shortness of breath, chest pain, new or worsening symptoms - please call your PCP or go to the ED. - Billing Disposition and Condition Condition: STABLE Disposition: Home
[2018-08-05 08:07] VITALS: BP 106/77
== END 2018-08-05 08:15 | disposition home or self-care (01) ==
LOC: UCEAST 07:52
DX: H60.92 Unspecified otitis externa, left ear (principal); Z88.0 Allergy status to penicillin; Z88.8 Allergy status to other drugs, medicaments and biological substances; Z88.1 Allergy status to other antibiotic agents; Z87.891 Personal history of nicotine dependence
CPT/HCPCS: 99212; G0463

== ENCOUNTER 2019-06-02 15:14 | Emergency (ER) | payer BC ==
[2019-06-02 15:39] VITALS: BP 108/71
--- NOTE | 2019-06-02 16:01 | UC ---
Throat Pain/Nasal Chip HPI - HPI Summary HPI Summary: 34 yo female with sore throat x 4 days no fever rare cough sight right otalgia - History of Current Complaint Chief Complaint: UCRespiratory Stated Complaint: THROAT PAIN Time Seen by Provider: 06/02/19 15:39 Hx Obtained From: Patient Hx Last Menstrual Period: IUD in place Onset/Duration: Gradual Onset, Lasting Days Severity: Moderate Pain Intensity: 6 Pain Scale Used: 0-10 Numeric Cough: Nonproductive Associated Signs & Symptoms: Positive: Negative - Epiglottits Risk Factors Epiglottis Risk Factors: Negative - Allergies/Home Medications Allergies/Adverse Reactions: Allergies Allergy/AdvReac Type Severity Reaction Status Date / Time amoxicillin [From Augmentin] Allergy Hives Verified 06/02/19 15:39 bee venom protein (honey bee) Allergy Anaphylatic Verified 06/02/19 15:39 Shock clavulanic acid Allergy Hives Verified 06/02/19 15:39 [From Augmentin] nitrofurantoin Allergy Hives Verified 06/02/19 15:39 [From Macrobid] Sulfa (Sulfonamide Allergy Hives Verified 06/02/19 15:39 Antibiotics) Home Medications: Home Medications Escitalopram Oxalate [Lexapro 10 mg] 1 tab PO DAILY 06/02/19 [History Confirmed 06/02/19] buPROPion HCl [Wellbutrin Sr] 1 tab PO DAILY 06/02/19 [History Confirmed ] PMH/Surg Hx/FS Hx/Imm Hx Previously Healthy: Yes - Surgical History Surgical History: Yes Surgery Procedure, Year, and Place: [place] [place] [place]. Appendectomy. TUBAL LIGATION - Family History Known Family History: Positive: Other - cancer Negative: Cardiac Disease, Hypertension, Diabetes - Social History Alcohol Use: Occasionally Substance Use Type: None Smoking Status (MU): Former Smoker Type: Cigarettes Amount Used/How Often: socially - Immunization History Most Recent Influenza Vaccination: never Most Recent Tetanus Shot: up to date Review of Systems All Other Systems Reviewed And Are Negative: Yes Constitutional: Positive: Negative Skin: Positive: Negative Eyes: Positive: Negative ENT: Positive: Sore Throat Respiratory: Positive: Cough Cardiovascular: Positive: Negative Gastrointestinal: Positive: Negative Genitourinary: Positive: Negative Motor: Positive: Negative Neurovascular: Positive: Negative Musculoskeletal: Positive: Negative Neurological: Positive: Negative Psychological: Positive: Negative Physical Exam Triage Information Reviewed: Yes Appearance: Well-Appearing, No Pain Distress, Well-Nourished Vital Signs: Initial Vital Signs Temp 98 F 06/02/19 15:34 Pulse 75 06/02/19 15:34 Resp 18 06/02/19 15:34 BP 108/71 06/02/19 15:34 Pulse Ox 99 06/02/19 15:34 Vital Signs Reviewed: Yes Eyes: Positive: Conjunctiva Clear ENT: Positive: Hearing grossly normal, Pharyngeal erythema, Other - ulceration right soft palate. Negative: Nasal congestion, Nasal drainage, Trismus, Muffled voice, Hoarse voice Dental Exam: Normal Neck: Positive: Nontender, Enlarged Nodes @ - right ant cerv Respiratory: Positive: Lungs clear, Normal breath sounds, No respiratory distress, No accessory muscle use Cardiovascular: Positive: RRR, No Murmur Abdomen Description: Positive: Nontender, No Organomegaly. Negative: CVA Tenderness (R), CVA Tenderness (L) Musculoskeletal: Positive: ROM Intact, No Edema Neurological: Positive: Alert Psychological Exam: Normal Skin Exam: Normal Diagnostics - Laboratory Lab Results: strep (-) Throat Pain/Nasal Course/Dx - Differential Dx/Diagnosis Provider Diagnosis: Pharyngitis Discharge ED - Sign-Out/Discharge Documenting (check all that apply): Patient Departure All imaging exams completed and their final reports reviewed: No Studies - Discharge Plan Condition: Stable Disposition: HOME Patient Education Materials: Pharyngitis (ED) Referrals: Mary Beth Menjivar MD [Primary Care Provider] - Additional Instructions: strep test negative you may gargle with a 50/50 mix of mylanta and benadryl elixer gargle as long as you can then spit that should give you some temporary relies repeat as needed tylenol or advil recheck in 4-5 days if not better - Billing Disposition and Condition Condition: STABLE Disposition: Home
== END 2019-06-02 16:40 | disposition home or self-care (01) ==
LOC: UCEAST 15:14
DX: J02.9 Acute pharyngitis, unspecified (principal); R05 Cough; Z87.891 Personal history of nicotine dependence; Z88.2 Allergy status to sulfonamides; Z88.0 Allergy status to penicillin; Z88.1 Allergy status to other antibiotic agents; Z91.030 Bee allergy status; Z95.5 Presence of coronary angioplasty implant and graft
CPT/HCPCS: 87651; 99211; G0463

== ENCOUNTER 2019-08-24 11:24 | Emergency (ER) | payer BC ==
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
[2019-08-24 12:00] VITALS: BP 113/87
[2019-08-24] MEDS ORDERED: Cephalexin CAP* 500 MG PO ONE (12:10)
[2019-08-24] MEDS ORDERED: Phenazopyridine TAB* 100 MG PO ONE (12:10)
--- NOTE | 2019-08-24 12:14 | UC ---
Complaint Female HPI - HPI Summary HPI Summary: 34-year-old woman comes in with a chief complaint of urethral pain and burning with urination. Symptoms started this morning. Denies any abnormal vaginal discharge. Patient has a Mirena and is not worried about . Denies any suprapubic or abdominal pain or flank pain. Patient does have a history of urethral and ureteral strictures and has been treated by urology for the same. Patient reports when she gets a urethral stenosis problem she ends up with abdominal pain she does not have any abdominal pain at this time. No fevers measured. - History Of Current Complaint Chief Complaint: UCGU Stated Complaint: ABDOMINAL COMPLAINT Time Seen by Provider: 08/24/19 11:59 Hx Last Menstrual Period: mirena Pain Intensity: 5 - Allergies/Home Medications Allergies/Adverse Reactions: Allergies Allergy/AdvReac Type Severity Reaction Status Date / Time amoxicillin [From Augmentin] Allergy Hives Verified 08/24/19 12:00 bee venom protein (honey bee) Allergy Anaphylatic Verified 08/24/19 12:00 Shock clavulanic acid Allergy Hives Verified 08/24/19 12:00 [From Augmentin] nitrofurantoin Allergy Hives Verified 08/24/19 12:00 [From Macrobid] Sulfa (Sulfonamide Allergy Hives Verified 08/24/19 12:00 Antibiotics) PMH/Surg Hx/FS Hx/Imm Hx Previously Healthy: Yes - urethral stenosis, ureteral collapse - Surgical History Surgical History: Yes Surgery Procedure, Year, and Place: CHOLECYSTECTOMY 08/2012-[facility] [place]. STENT PLACEMENT - URETERS-2004 AND 2005-[facility] [place]- REMOVED. Appendectomy. TUBAL LIGATION - Family History Known Family History: Positive: Other - cancer Negative: Cardiac Disease, Hypertension, Diabetes - Social History Alcohol Use: Occasionally Substance Use Type: None Smoking Status (MU): Former Smoker Type: Cigarettes Amount Used/How Often: socially - Immunization History Most Recent Influenza Vaccination: never Most Recent Tetanus Shot: up to date Review of Systems All Other Systems Reviewed And Are Negative: Yes Constitutional: Positive: Negative Skin: Positive: Negative Eyes: Positive: Negative ENT: Positive: Negative Respiratory: Positive: Negative Cardiovascular: Positive: Negative Gastrointestinal: Positive: Negative Genitourinary: Positive: Dysuria, Other - SEE HPI Motor: Positive: Negative Neurovascular: Positive: Negative Musculoskeletal: Positive: Negative Neurological: Positive: Negative Psychological: Positive: Negative Is Patient Immunocompromised?: No Physical Exam Triage Information Reviewed: Yes Appearance: Well-Appearing, Well-Nourished, Pain Distress - MILD Vital Signs: Initial Vital Signs Temp 97.8 F 08/24/19 11:58 Pulse 89 08/24/19 11:58 Resp 18 08/24/19 11:58 BP 113/87 08/24/19 11:58 Pulse Ox 98 08/24/19 11:58 Vital Signs Reviewed: Yes Eye Exam: Normal Eyes: Positive: Conjunctiva Clear Neck: Positive: Supple Respiratory: Positive: Lungs clear, Normal breath sounds, No respiratory distress Cardiovascular: Positive: RRR Abdomen Description: Positive: Nontender, Soft. Negative: CVA Tenderness (R), CVA Tenderness (L) Bowel Sounds: Positive: Present Musculoskeletal: Positive: Strength Intact, ROM Intact Neurological: Positive: Alert, Muscle Tone Normal Psychological: Positive: Normal Response To Family, Age Appropriate Behavior Skin Exam: Normal Complaint Female Dx - Course Course Of Treatment: There are leukocytes and blood in the urine. We will treat for UTI. Patient reports she's taken Keflex in the past without any problems. We'll start the patient on Keflex and Pyridium. Patient does see urology. At this time she states it does not feel like urethral stricture as she has no abdominal pain. We did discuss that if she did not improve completely she should follow-up with urology if she got worse she should get reevaluated sooner. - Differential Dx/Diagnosis Provider Diagnosis: UTI (urinary tract infection) Discharge ED - Sign-Out/Discharge Documenting (check all that apply): Patient Departure All imaging exams completed and their final reports reviewed: No Studies - Discharge Plan Condition: Stable Disposition: HOME Prescriptions: Cephalexin CAP* [Keflex CAP*] 500 mg PO TID #20 cap Phenazopyridine 200 mg (NF) [Pyridium 200 MG tab *] 200 mg PO TID PRN #6 tab PRN Reason: Pain - Mild Patient Education Materials: Urinary Tract Infection in Women (ED) Referrals: Mary Beth Menjivar MD [Primary Care Provider] - Gurmeet Yee MD [Medical Doctor] - Additional Instructions: FOLLOW UP WITH YOUR UROLOGIST IF NOT COMPLETELY IMPROVED. GET REEVALUATED SOONER IF NOT IMPROVED OR WORSE OR ANY QUESTIONS OR CONCERNS. - Billing Disposition and Condition Condition: STABLE Disposition: Home
== END 2019-08-24 12:30 | disposition home or self-care (01) ==
LOC: UCEAST 11:24
DX: N39.0 Urinary tract infection, site not specified (principal); Z87.891 Personal history of nicotine dependence; Z88.0 Allergy status to penicillin; Z91.030 Bee allergy status; Z88.1 Allergy status to other antibiotic agents; Z88.2 Allergy status to sulfonamides; Z96.0 Presence of urogenital implants
CPT/HCPCS: 81003; 87086; 99212; A9270-GY; G0463